=== PATIENT | male | born 1935 | race Caucasian/White ===

== ENCOUNTER 2017-01-20 17:05 | Inpatient (IN) | payer MEDICARE, MEDICAID ==
[2017-01-20 17:32] LABS: % BASOPHILS 0.6 % (0.0-2.0); % EOSINOPHILS 0.9 % (0.0-5.0); % LYMPHOCYTES 17.1 % (20.0-50.0); % MONOCYTES 6.5 % (2.0-10.0); % NEUTROPHILS 74.9 % (40.0-80.0); HEMOGLOBIN 12.8 gm/dL (12.6-17.4); MEAN CELL VOLUME 94.7 fl (80-99); MEAN CORPUSCULAR HEMOGLOBIN 33.1 pg (27.0-31.0); MEAN CORPUSCULAR HGB CONC 34.9 pg (28.0-36.0); MEAN PLATELET VOLUME 6.3 fl; NEUTROPHILE ABSOLUTE 4.6 Th/cmm (1.8-8.0); PLATELET COUNT 255 Th/cmm (150-400); RED BLOOD COUNT 3.86 Mil/cmm (3.80-5.80); RED CELL DISTRIBUTION WIDTH 13.7 % (11.5-20.0); WHITE BLOOD COUNT 6.1 Th/cmm (4.8-10.8)
[2017-01-20 17:34] LABS: HEMATOCRIT 36.6 % (39.0-49.0)
[2017-01-20 17:43] LABS: INR 0.96 (0.5-1.4)
[2017-01-20 17:51] LABS: ALB/GLOB RATIO 1.3 (1.0-1.8); ALKALINE PHOSPHATASE 147 U/L (34-104); ANION GAP 8.2 (7.0-16.0); BILIRUBIN,TOTAL 0.4 mg/dL (0.3-1.0); BUN - UREA NITROGEN 25 mg/dL (7-25); BUN/CREATININE RATIO 35.7; CALCIUM SERUM 9.2 mg/dL (8.6-10.3); CARBON DIOXIDE 30.1 mEq/L (21.0-31.0); CHLORIDE 102 mEq/L (98-107); CHOLESTEROL 175 mg/dL (<200); CREATININE - SERUM 0.7 mg/dL (0.7-1.3); GLUCOSE 117 mg/dL (70-105); POTASSIUM SERUM 4.3 mEq/L (3.5-5.1); SGOT 18 U/L (13-39); SGPT/ALT 15 U/L (7-52); SODIUM SERUM 136 mEq/L (136-145); TRIGLYCERIDES 158 mg/dL (<150)
--- NOTE | 2017-01-20 18:02 | ED Physician Chart ---
Chief Complaint/HPI - Patient Information Date Seen:: 01/20/17 Time Seen:: 17:40 Chief Complaint:: psychosis History of Present Illness:: THIS IS AN 81 MALE MALE SENT FROM A [facility] FOR [facility] EVALUATION AND TREATMENT. HE IS ALSO VERY CONFUSED AND DISORIENTED. Allergies:: Allergies Allergy/AdvReac Type Severity Reaction Status Date / Time erythromycin base Allergy Verified 05/21/16 15:10 Vitals:: Vital Signs - 8 hr 01/20/17 17:31 Temp 98.2 F HR 58 RR 19 BP 121/70 O2 Sat % 99 Historian:: EMS, Medical Records Review:: Nurse's Note Reviewed, Transfer documents Reviewed, Patient unable to respond Review of Systems - Review of Systems General/Constitutional: Other (PT UNABLE TO GIVE A REVIEW OF SYSTEMS) Past Medical History - Past Medical History Obtainable: Yes Past Medical History: CVA/TIA, Dementia Family History: None Social History: Non Smoker, No Alcohol, No Drug Use, Care Facility Surgical History: None Psychiatricy History: Dementia Medication: Reviewed Family Medical History - Family Member Mother History Unknown: Yes Ethnicity: Unknown Living Status: Unknown Hx Family Cancer: No Hx Family Coronary Artery Disease: No Hx Family Congestive Heart Failure: No Hx Family Hypertension: No Hx Family Stroke: No Hx Family Diabetes: No Hx Family Seizures: No Hx Family Dementia: No Hx Family AIDS: No Hx Family HIV: No Hx Family COPD: No Hx Family Hepatitis: No Hx Family Psychiatric Problems: No Hx Family Tuberculosis: No Physical Exam - Physical Examination General/Constitutional: Awake, Well-developed, well-nourished, Alert, No distress, GCS 15, Non-toxic appearing, Ambulatory Other Gen/Cons comments:: CONFUSED Head: Atraumatic Eyes: Lids, conjuctiva normal, PERRL, EOMI Skin: No rash, No ecchymosis, Well hydrated, No lymphadenopathy Other Skin comments:: THERE IS A HEALING SKIN INFECTION ON THE LEFT TEMPORAL AREA. ENMT: External ears, nose nl, Nasal exam nl, Lips, teeth, gums nl Neck: Nontender, Full ROM w/o pain, No JVD, No nuchal rigidity, No bruit, No mass, No stridor Respiratory: Nl effort/Exclusion, Clear to Auscultation, No Wheeze/Rhonchi/Rales Cardio Vascular: RRR, No murmur, gallop, rubs, NL S1 S2 GI: No tenderness/rebounding/guarding, No organomegaly, No hernia, Normal BS's, Nondistended, No mass/bruits, No McBurney tenderness : No CVA tenderness Extremities: No tenderness or effusion, Full ROM, normal strength in all extremities, No edema, Normal digits & nails Neuro/Psych: DTR's symmetric, Normal sensory exam, Normal motor strength, Mood normal, Normal gait, No focal deficits Other Neuro/Psych comments:: DISORIENTED AND CONFUSED BEHAVIOR Misc: normal gait, Normal back, No paraspinal tenderness Labs/Radiology/EKG Results - Lab Results Results: Laboratory Tests 01/20/17 01/20/17 01/20/17 17:23 17:23 17:23 WBC 6.1 RBC 3.86 Hgb 12.8 Hct 36.6 L D MCV 94.7 MCH 33.1 H MCHC Differential 34.9 RDW 13.7 Plt Count 255 MPV 6.3 Neutrophils % 74.9 Lymphocytes % 17.1 L Monocytes % 6.5 Eosinophils % 0.9 Basophils % 0.6 PT 10.0 INR 0.96 PTT (Actin FS) 27.0 Sodium Potassium Chloride Carbon Dioxide Anion Gap BUN Creatinine Est GFR ( Amer) Est GFR (Non-Af Amer) BUN/Creatinine Ratio Glucose Calcium Total Bilirubin AST ALT Alkaline Phosphatase Troponin I Total Protein Albumin Globulin Albumin/Globulin Ratio Triglycerides 158 H Cholesterol 175 LDL Cholesterol Direct 98 HDL Cholesterol 54 01/20/17 01/20/17 17:23 17:23 WBC RBC Hgb Hct MCV MCH MCHC Differential RDW Plt Count MPV Neutrophils % Lymphocytes % Monocytes % Eosinophils % Basophils % PT INR PTT (Actin FS) Sodium 136 Potassium 4.3 Chloride 102 Carbon Dioxide 30.1 Anion Gap 8.2 BUN 25 Creatinine 0.7 Est GFR ( Amer) TNP Est GFR (Non-Af Amer) TNP BUN/Creatinine Ratio 35.7 Glucose 117 H Calcium 9.2 Total Bilirubin 0.4 AST 18 ALT 15 Alkaline Phosphatase 147 H Troponin I 0.01 Total Protein 6.3 Albumin 3.6 L Globulin 2.7 Albumin/Globulin Ratio 1.3 Triglycerides Cholesterol LDL Cholesterol Direct HDL Cholesterol - Radiology Results Results: CHEST X-RAY = NAD - EKG Interpretations EKG Time:: 17:15 Rate & Rhythm: RATE = 65 Trimble: RIGHT AXIS Assessment - Assessment General Assessment: PSYCHOSIS ED Septic Shock - . Is Septic Shock (SBP<90, OR Lactate>4 mmol\L) present?: No - <6hrs of presentation: Vital Signs: Vital Signs - 8 hr 01/20/17 17:31 Temp 98.2 F HR 58 RR 19 BP 121/70 O2 Sat % 99 Reassessment (Disposition) - Reassessment Reassessment Condition:: Unchanged - Diagnosis Diagnosis:: PSYCHOSIS - Patient Disposition Discharge/Transfer:: Acute Care w/in this hosp Admitting Medical Physician:: Elizabeth Trejo Admitting Psych Physician:: Swati Downing Condition at Disposition:: Unchanged ED Discharge Plan - Patient Disposition Admit/Discharge/Transfer: Acute Care w/in this hosp Condition at Disposition: Unchanged
[2017-01-20] MEDS ORDERED: Maalox 30 mL Cup PO PRN (21:31)
[2017-01-20] MEDS ORDERED: Magnesium Hydroxide (MOM) 30 mL UDC PO PRN (21:31)
[2017-01-20] MEDS ORDERED: Bacitracin pkt 1 gm Pkt TP ONE (22:25)
[2017-01-20] MEDS: Bacitracin pkt 1 gm Pkt TP SCH (23:02)
[2017-01-20 23:28] VITALS: BP 143/87
[2017-01-21] MEDS: Lactulose 10 Gm/15 mL 30mL UDC PO SCH (08:59)
[2017-01-21] MEDS: Multivitamin Tab PO SCH (09:00)
[2017-01-21] MEDS: Ferrous Sulfate 325 MG TAB PO SCH (09:00)
[2017-01-21] MEDS: Bacitracin pkt 1 gm Pkt TP SCH (09:00)
[2017-01-21] MEDS: Calcium Carb/Vit D 500 mg/200 U Tab PO SCH ×2 (09:00→16:52)
--- NOTE | 2017-01-21 11:19 | Diagnostic Imaging Report ---
Portable chest x-ray HISTORY: Shortness of breath The heart size is difficult to assess with portable technique. Accentuation of the interstitial lung markings. However, no focal processes are seen. There is a healing fracture involving the proximal portion of the right humeral shaft with callus formation. Incomplete bony union. IMPRESSION: 1. Healing fracture involving the proximal right humeral shaft with incomplete bony union 2. No focal pulmonary processes
--- NOTE | 2017-01-21 12:07 | History and Physical ---
History of Present Illness - HPI Chief Complaint: The patient is an 81 year old male with PMH significant for dementia,admitted to [facility] with altered level of conciousness. HPI: The patient has history of craniotomy and dementia.He is a resident at [facility]. 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, Other (craniatomy for resection of tumor.) GI: Report: No Pertinent Hx Musculoskeletal: Report: Other (Rt shoulder fracture.) Rheumatologic: Report: No pertinent Hx Infectious Disease: Report: No Pertinent Hx Renal/: Report: No Pertinent Hx Endocrine: Report: No Pertinent Hx Dermatology: Report: Other (Skin lesions on scalp.) Family Medical History - Family Member Mother History Unknown: Yes (not significant) Ethnicity: Unknown Living Status: Unknown Hx Family Cancer: No Hx Family Coronary Artery Disease: No Hx Family Congestive Heart Failure: No Hx Family Hypertension: No Hx Family Stroke: No Hx Family Diabetes: No Hx Family Seizures: No Hx Family Dementia: No Hx Family AIDS: No Hx Family HIV: No Hx Family COPD: No Hx Family Hepatitis: No Hx Family Psychiatric Problems: No Hx Family Tuberculosis: No Social History Smoke: No Alcohol: None Drugs: None Lives: Alf Domestic Violence: Negative Health Maintenance Health Maintenance: Tetanus, Influenza Vaccine, Pneumococcal Vaccine - Medications Home Medications: Home Medication Medication Instructions Recorded Type Acetaminophen [Tylenol] 325 mg PO Q4HR PRN 05/21/16 History Gabapentin [Neurontin*] 600 mg PO HS 05/21/16 History Magnesium Hydroxide [Milk of 30 ml PO DAILY PRN 05/21/16 History Magnesia] Psyllium [Metamucil] 1 tsp PO BID 05/21/16 History Ferrous Sulfate [Iron] 325 mg PO DAILY #0 05/31/16 Rx Multivitamin with Minerals 1 tab PO DAILY #0 05/31/16 Rx [Multivitamins with Minerals] Pilocarpine 1% Ophth Soln 1 drop EACH EYE TID #0 05/31/16 Rx [Isopto-Carpine 1% Ophth Soln] Acetaminophen [Tylenol] 650 mg PO BID 01/20/17 History Bacitracin 1 gm OP BID 01/20/17 History Calcium Carb/Vitamin D3/Vit K1 1 each PO BID 01/20/17 History [Calcium + D Soft Chewable Tab] Docusate Sodium [Colace] 100 mg PO BID 01/20/17 History Lactulose 20 gm PO DAILY 01/20/17 History Normal Saline Nasal [place] 1 puff NS DAILY 01/20/17 History - Allergies Allergies/Adverse Reactions: Allergies Allergy/AdvReac Type Severity Reaction Status Date / Time erythromycin base Allergy Verified 05/21/16 15:10 Review of Systems - Review of Systems Constitutional: Denies: Fever, Chills, Weakness, Malaise Eyes: Denies: No Significant, Pain, Vision Change ENT: Denies: No Significant Respiratory: Denies: No Significant Cardiovascular: Denies: No Significant Gastrointestinal: Denies: No Significant Genitourinary: Denies: No Significant Musculoskeletal: Denies: No Significant Skin: Denies: No Significant Neurological: Report: Confusion Physical Exam - Physical Exam HEENT: Report: Ectectic Sclera Neck: Report: Within normal limits Cardiovascular Systems: Report: +s1/s2 noted, Regular, Rate and Rhythm, no murmurs noted Respiratory: Report: Breath Sounds are within normal limits, Clear to Auscultation of lung baer Abdomen: Report: Non-tender to palpation Back: Report: Inspection of back is within normal limits. Extremities: Report: No pedal edema was noted on inspection Skin: Report: Warm Neuro/Psych: Report: No new focal deficits - Lab Results All Lab Results last 24 hours: Laboratory Last Values WBC 6.1 Th/cmm (4.8-10.8) 01/20/17 17:23 RBC 3.86 Mil/cmm (3.80-5.80) 01/20/17 17:23 Hgb 12.8 gm/dL (12.6-17.4) 01/20/17 17: Hct 36.6 % (39.0-49.0) L D 01/20/17 17:23 MCV 94.7 fl (80-99) 01/20/17 17:23 MCH 33.1 pg (27.0-31.0) H 01/20/17 17: MCHC Differential 34.9 pg (28.0-36.0) 01/20/17: RDW 13.7 % (11.5-20.0) 01/20/17: Plt Count 255 Th/cmm (150-400) 01/20/17 MPV 6.3 fl 01/20/17: Neutrophils % 74.9 % (40.0-80.0) 01/20/17: Lymphocytes % 17.1 % (20.0-50.0) L 01/20/17 Monocytes % 6.5 % (2.0-10.0) 01/20/17 Eosinophils % 0.9 % (0.0-5.0) 01/20/17 Basophils % 0.6 % (0.0-2.0) 01/20/17 PT 10.0 SECONDS (9.5-11.5) 01/20/17 INR 0.96 (0.5-1.4) 01/20/17 PTT (Actin FS) 27.0 SECONDS (26.0-38.0) 01/20/17: Sodium 136 mEq/L (136-145) 01/20/17: Potassium 4.3 mEq/L (3.5-5.1) 01/20/17: Chloride 102 mEq/L (98-107) 01/20/17 Carbon Dioxide 30.1 mEq/L (21.0-31.0) 01/20/17 Anion Gap 8.2 (7.0-16.0) 01/20/17 BUN 25 mg/dL (7-25) 01/20/17 Creatinine 0.7 mg/dL (0.7-1.3) 01/20/17 Est GFR ( Amer) TNP 01/20/17 Est GFR (Non-Af Amer) TNP 01/20/17 BUN/Creatinine Ratio 35.7 01/20/17 Glucose 117 mg/dL (70-105) H 01/20/17: Calcium 9.2 mg/dL (8.6-10.3) 01/20/17 Total Bilirubin 0.4 mg/dL (0.3-1.0) 01/20/17 17: AST 18 U/L (13-39) 01/20/17 17: ALT 15 U/L (7-52) 01/20/17 17: Alkaline Phosphatase 147 U/L (34-104) H 01/20/17 17: Troponin I 0.01 ng/mL (0.01-0.05) 01/20/17: Total Protein 6.3 gm/dL (6.0-8.3) 01/20/17: Albumin 3.6 gm/dL (4.2-5.5) L 01/20/17: Globulin 2.7 gm/dL 01/20/17: Albumin/Globulin Ratio 1.3 (1.0-1.8) 01/20/17 17: Triglycerides 158 mg/dL (<150) H 01/20/17: Cholesterol 175 mg/dL (<200) 01/20/17: LDL Cholesterol Direct 98 mg/dL (75-193) 01/20/17: HDL Cholesterol 54 mg/dL (23-92) 01/20/17: TSH 4.06 uIU/ml (0.34-5.60) 01/20/17: RPR NONREACTIVE (NONREACTIVE) 01/20/17 17:23 - Assessment Assessment: Current Active Problems Problem Status Onset WEAKNESS AND LETHARGY Acute 1.Altered level of conciousness. 2.Dementia. 3.Rt shoulder fracture. 4.History of craniatomy. - Plan Plan: Admit to gerypsych.Continue current medication and diet.The case discussed with his daughter over teleph.
[2017-01-22] MEDS: Bacitracin pkt 1 gm Pkt TP SCH (08:50)
[2017-01-22] MEDS: Lactulose 10 Gm/15 mL 30mL UDC PO SCH (08:50)
[2017-01-22] MEDS: Ferrous Sulfate 325 MG TAB PO SCH (08:50)
[2017-01-22] MEDS: Multivitamin Tab PO SCH (08:50)
[2017-01-22] MEDS: Calcium Carb/Vit D 500 mg/200 U Tab PO SCH ×2 (08:50→16:42)
--- NOTE | 2017-01-22 13:51 | Internal Medicine Prog Note ---
Internal Medicine Subjective - Subjective Patient is:: awake, in bed, confused Per staff patient has:: no adverse event, eating well, unstable gait Internal Medicine Objective - Results Result Diagrams: 01/20/17 17:01/20/17 Recent Labs: Laboratory Last Values WBC 6.1 Th/cmm (4.8-10.8) 01/20/17 17: RBC 3.86 Mil/cmm (3.80-5.80) 01/20/17: Hgb 12.8 gm/dL (12.6-17.4) 01/20/17 Hct 36.6 % (39.0-49.0) L D 01/20/17 MCV 94.7 fl (80-99) 01/20/17 MCH 33.1 pg (27.0-31.0) H 01/20/17 MCHC Differential 34.9 pg (28.0-36.0) 01/20/17 RDW 13.7 % (11.5-20.0) 01/20/17 Plt Count 255 Th/cmm (150-400) 01/20/17: MPV 6.3 fl 01/20/17: Neutrophils % 74.9 % (40.0-80.0) 01/20/17: Lymphocytes % 17.1 % (20.0-50.0) L 01/20/17: Monocytes % 6.5 % (2.0-10.0) 01/20/17: Eosinophils % 0.9 % (0.0-5.0) 01/20/17: Basophils % 0.6 % (0.0-2.0) 01/20/17: PT 10.0 SECONDS (9.5-11.5) 01/20/17: INR 0.96 (0.5-1.4) 01/20/17 PTT (Actin FS) 27.0 SECONDS (26.0-38.0) 01/20/17 17: Sodium 136 mEq/L (136-145) 01/20/17: Potassium 4.3 mEq/L (3.5-5.1) 01/20/17: Chloride 102 mEq/L (98-107) 01/20/17: Carbon Dioxide 30.1 mEq/L (21.0-31.0) 01/20/17: Anion Gap 8.2 (7.0-16.0) 01/20/17 17: BUN 25 mg/dL (7-25) 01/20/17: Creatinine 0.7 mg/dL (0.7-1.3) 01/20/17: Est GFR ( Amer) TNP 01/20/17 17: Est GFR (Non-Af Amer) TNP 01/20/17 BUN/Creatinine Ratio 35.7 01/20/17: Glucose 117 mg/dL (70-105) H 01/20/17: Calcium 9.2 mg/dL (8.6-10.3) 01/20/17: Total Bilirubin 0.4 mg/dL (0.3-1.0) 01/20/17: AST 18 U/L (13-39) 01/20/17: ALT 15 U/L (7-52) 01/20/17: Alkaline Phosphatase 147 U/L (34-104) H 01/20/17: Troponin I 0.01 ng/mL (0.01-0.05) 01/20/17: Total Protein 6.3 gm/dL (6.0-8.3) 01/20/17: Albumin 3.6 gm/dL (4.2-5.5) L 01/20/17 Globulin 2.7 gm/dL 01/20/17: Albumin/Globulin Ratio 1.3 (1.0-1.8) 01/20/17: Triglycerides 158 mg/dL (<150) H 01/20/17: Cholesterol 175 mg/dL (<200) 01/20/17: LDL Cholesterol Direct 98 mg/dL (75-193) 01/20/17: HDL Cholesterol 54 mg/dL (23-92) 01/20/17: TSH 4.06 uIU/ml (0.34-5.60) 07/10/17 17:23 RPR NONREACTIVE (NONREACTIVE) 01/20/17 17:23 - Physical Exam Vitals and I&O: Vital Signs Temp 97.1 F 01/22/17 06:37 Pulse 68 01/22/17 12:39 Resp 18 01/22/17 12:39 BP 140/74 01/22/17 06:37 Pulse Ox 97 01/22/17 06:37 Intake & Output 01/21/17 01/22/17 01/22/17 18:59 06:59 18:59 Intake Total 1200 120 Balance 1200 120 Weight (lbs) 52.662 kg Intake: Oral 1200 120 Other: # Voids 4 3 # Bowel Movements 0 Active Medications: Current Medications Acetaminophen (Tylenol) 650 mg PO Q4HR PRN PRN Reason: Mild Pain / Temp above 100 Stop: 03/21/17 21:30 Al Hydrox/Mg Hydrox/Simethicone (Maalox) 30 ml PO Q4HR PRN PRN Reason: GI DISTRESS Stop: 03/21/17 21:30 Bacitracin (Baciquent) 1 pkt TP DAILY ADOLFO Stop: 02/02/17 22:10 Last Admin: 01/22/17 08:50 Dose: 1 pkt Calcium/Vitamin D (Oscal W/Vitamin D) 1 tab PO BID ADOLFO Stop: 03/22/17 08:59 Last Admin: 01/22/17 08:50 Dose: 1 tab Docusate Sodium (Colace) 100 mg PO BID ADOLFO Stop: 03/22/17 08:59 Last Admin: 01/22/17 08:50 Dose: 100 mg Ferrous Sulfate (Iron) 325 mg PO DAILY ADOLFO Stop: 03/22/17 08:59 Last Admin: 01/22/17 08:50 Dose: 325 mg Gabapentin (Neurontin) 600 mg PO HS ADOLFO Stop: 03/22/17 20:59 Last Admin: 01/21/17 21:31 Dose: 600 mg Lactulose (Cephulac) 20 gm PO DAILY ADOLFO Stop: 03/22/17 08:59 Last Admin: 01/22/17 08:50 Dose: 20 gm Lorazepam (Ativan) 0.5 mg PO Q4HR PRN; Protocol PRN Reason: Anxiety Stop: 02/19/17 21:30 Magnesium Hydroxide (Milk Of Magnesia) 30 ml PO HS PRN PRN Reason: Constipation Multivitamins/Vitamin C (Theragran) 1 tab PO DAILY ADOLFO Stop: 03/22/17 08:59 Last Admin: 01/22/17 08:50 Dose: 1 tab Pilocarpine HCl (Isopto-Carpine 1% Ophth Soln) 1 drop EACH EYE TID ADOLFO Stop: 03/22/17 08:59 Last Admin: 01/22/17 08:51 Dose: 1 drop Psyllium Hydrophilic Mucilloid (Metamucil) 1 pkt PO BID ADOLFO Stop: 03/22/17 08:59 Last Admin: 01/22/17 08:50 Dose: 1 pkt Zolpidem Tartrate (Ambien) 5 mg PO HS PRN PRN Reason: Insomnia Stop: 03/21/17 21:30 General: weak, demented HEENT: EOMI, throat clear Neck: Supple, No JVD Lungs: CTAB Cardiovascular: RRR Abdomen: soft, non-distended Extremities: clear Neurological: no change - Procedures Procedures: Procedures Procedure Code Date [place] [address] 05/21/16 IMMUNIZATION ADMIN 53487 05/21/16 INTRODUCTION OF SERUM/TOX/VACCINE INTO MUSCLE, PERC APPROACH [id number] 05/21/16 Internal Medicine Assmt/Plan - Assessment Assessment: Current Active Problems Problem Status Onset WEAKNESS AND LETHARGY Acute 1.Altered level of conciousness. 2.Dementia. 3.Rt shoulder fracture. 4.History of craniatomy. - Plan Plan: Admit to gerypsych.Continue current medication and diet.The case discussed with his daughter over teleph. Nutritional Asmnt/Malnutr-PDOC - Dietary Evaluation Malnutrition Findings (Please click <Entered> for more info): Nutritional Asmnt/Malnutrition Start: 01/21/17 14: 07 Text: Status: Active Freq: Document 01/21/17 14:07 TRISHUN (Rec: 01/21/17 14:21 [id number]) Nutritional Asmnt/Malnutrition Patient General Information Nutritional Screening High Risk Screening Diagnosis ALOC, dementia, right shoulder fracture Pertinent Medical Hx/Surgical Hx Dementia, craniatomy for resection of tumor, right shoulder fracture, skin lesions on scalp Subjective Information 81 year old male from SN[facility]. Pt was awake and very pleasant, very forgetful. Pt smiled and responded "oh yea" to most of RD's questions. Pt does not know UBW and did not show RD his teeth, pt is on pureed. Limited physical assessment, moderate to severe wasting to clavicles, some bicep muslce present. Observed sign on headboard "aspiration precaution, thickened liquids only." RD asked regarding usual appetite and hunger, pt replied "I like food" Re- visited and observed [employer] assiting with meals, no difficulties noted. Current Diet Order/ Nutrition Support Pureed, AIYANA, CCHO, honey thick Pertinent Medications Maalox, Oscal W/Vitamin D, Colace, Iron, Cephulac, MOM, Theragran, Metamucil Pertinent Labs Triglycerides 158H Nutritional Hx/Data Height 1.68 m Height (Calculated Centimeters) 167.6 Current Weight (lbs) 52.662 kg Weight (Calculated Kilograms) 52.7 Weight (Calculated Grams) 14852.1 Ruth Body Weight 142 Weight Status Underweight GI Symptoms Skin Integrity/Comment: Ishan 15. Left temporal biopsy site wound. Estimated Nutritional Goals Calories/Kcals/Kg IBW 142lb/64.5kg Kcals Calculated 1613-1935kcal (25-30kcal/kg) Protein Calculated 65g (1g/kg) Fluid: ml 1613-1935ml (1ml/kcal) Nutritional Problem 1. Problem Problem Underweight related to Etiology unknown etiology, energy imbalance aeb Signs/Symptoms: BMI 18.7, overall thin, moderate to severe wasting to clavicles Intervention/Recommendation Comments 1. Recommend removing CCHO restriction as no dx or hx DM noted in H&P. Pt is near underweight status with moderate to severe wasting to clavicles, liberalizing diet to provide more food choices to promote upward weight trend . Encourage and monitor PO intake. 2. Assist with meal. Pt is on honey thickened liquids with aspiration precausion sign. Expected Outcomes/Goals Expected Outcomes/Goals 1. PO itnake to meet at least 75% of estimated nutritional needs. 2. Weight trend towards IBW.
[2017-01-23] MEDS: Calcium Carb/Vit D 500 mg/200 U Tab PO SCH ×2 (08:58→16:30)
[2017-01-23] MEDS: Ferrous Sulfate 325 MG TAB PO SCH (08:58)
[2017-01-23] MEDS: Multivitamin Tab PO SCH (08:58)
[2017-01-23] MEDS: Bacitracin pkt 1 gm Pkt TP SCH (08:58)
[2017-01-23] MEDS: Lactulose 10 Gm/15 mL 30mL UDC PO SCH (08:58)
--- NOTE | 2017-01-23 16:34 | Internal Medicine Prog Note ---
Internal Medicine Subjective - Subjective Patient is:: awake, in bed, confused Per staff patient has:: no adverse event, eating well, unstable gait Internal Medicine Objective - Results Result Diagrams: 01/20/17 17:01/20/17 Recent Labs: Laboratory Last Values WBC 6.1 Th/cmm (4.8-10.8) 01/20/17 17: RBC 3.86 Mil/cmm (3.80-5.80) 01/20/17: Hgb 12.8 gm/dL (12.6-17.4) 01/20/17 Hct 36.6 % (39.0-49.0) L D 01/20/17 MCV 94.7 fl (80-99) 01/20/17 MCH 33.1 pg (27.0-31.0) H 01/20/17 MCHC Differential 34.9 pg (28.0-36.0) 01/20/17 RDW 13.7 % (11.5-20.0) 01/20/17 Plt Count 255 Th/cmm (150-400) 01/20/17: MPV 6.3 fl 01/20/17: Neutrophils % 74.9 % (40.0-80.0) 01/20/17: Lymphocytes % 17.1 % (20.0-50.0) L 01/20/17: Monocytes % 6.5 % (2.0-10.0) 01/20/17: Eosinophils % 0.9 % (0.0-5.0) 01/20/17: Basophils % 0.6 % (0.0-2.0) 01/20/17: PT 10.0 SECONDS (9.5-11.5) 01/20/17: INR 0.96 (0.5-1.4) 01/20/17 PTT (Actin FS) 27.0 SECONDS (26.0-38.0) 01/20/17 17: Sodium 136 mEq/L (136-145) 01/20/17: Potassium 4.3 mEq/L (3.5-5.1) 01/20/17: Chloride 102 mEq/L (98-107) 01/20/17: Carbon Dioxide 30.1 mEq/L (21.0-31.0) 01/20/17: Anion Gap 8.2 (7.0-16.0) 01/20/17 17: BUN 25 mg/dL (7-25) 01/20/17: Creatinine 0.7 mg/dL (0.7-1.3) 01/20/17: Est GFR ( Amer) TNP 01/20/17 17: Est GFR (Non-Af Amer) TNP 01/20/17 BUN/Creatinine Ratio 35.7 01/20/17: Glucose 117 mg/dL (70-105) H 01/20/17: Calcium 9.2 mg/dL (8.6-10.3) 01/20/17: Total Bilirubin 0.4 mg/dL (0.3-1.0) 01/20/17: AST 18 U/L (13-39) 01/20/17: ALT 15 U/L (7-52) 01/20/17: Alkaline Phosphatase 147 U/L (34-104) H 01/20/17: Troponin I 0.01 ng/mL (0.01-0.05) 01/20/17: Total Protein 6.3 gm/dL (6.0-8.3) 01/20/17: Albumin 3.6 gm/dL (4.2-5.5) L 01/20/17 Globulin 2.7 gm/dL 01/20/17: Albumin/Globulin Ratio 1.3 (1.0-1.8) 01/20/17: Triglycerides 158 mg/dL (<150) H 01/20/17: Cholesterol 175 mg/dL (<200) 01/20/17: LDL Cholesterol Direct 98 mg/dL (75-193) 01/20/17: HDL Cholesterol 54 mg/dL (23-92) 01/20/17: TSH 4.06 uIU/ml (0.34-5.60) 07/10/17 17:23 RPR NONREACTIVE (NONREACTIVE) 01/20/17 17:23 - Physical Exam Vitals and I&O: Vital Signs Temp 97.9 F 01/23/17 06:08 Pulse 59 01/23/17 10:35 Resp 18 01/23/17 10:35 BP 153/82 01/23/17 06:08 Pulse Ox 94 01/23/17 06:08 Intake & Output 01/22/17 01/23/17 01/23/17 18:59 06:59 18:59 Intake Total 960 100 Balance 960 100 Intake: Oral 960 100 Other: # Voids 3 1 # Bowel Movements 1 0 Active Medications: Current Medications Acetaminophen (Tylenol) 650 mg PO Q4HR PRN PRN Reason: Mild Pain / Temp above 100 Stop: 03/21/17 21:30 Al Hydrox/Mg Hydrox/Simethicone (Maalox) 30 ml PO Q4HR PRN PRN Reason: GI DISTRESS Stop: 03/21/17 21:30 Bacitracin (Baciquent) 1 pkt TP DAILY ADOLFO Stop: 02/02/17 22:10 Last Admin: 01/23/17 08:58 Dose: 1 pkt Calcium/Vitamin D (Oscal W/Vitamin D) 1 tab PO BID ADOLFO Stop: 03/22/17 08:59 Last Admin: 01/23/17 16:30 Dose: 1 tab Docusate Sodium (Colace) 100 mg PO BID ADOLFO Stop: 03/22/17 08:59 Last Admin: 01/23/17 16:30 Dose: 100 mg Escitalopram Oxalate (Lexapro) 2.5 mg PO DAILY ADOLFO PRN Reason: Protocol Stop: 03/25/17 08:59 Ferrous Sulfate (Iron) 325 mg PO DAILY ADOLFO Stop: 03/22/17 08:59 Last Admin: 01/23/17 08:58 Dose: 325 mg Gabapentin (Neurontin) 600 mg PO HS ADOLFO Stop: 03/22/17 20:59 Last Admin: 01/22/17 21:02 Dose: 600 mg Lactulose (Cephulac) 20 gm PO DAILY ADOLFO Stop: 03/22/17 08:59 Last Admin: 01/23/17 08:58 Dose: 20 gm Lorazepam (Ativan) 0.5 mg PO Q4HR PRN; Protocol PRN Reason: Anxiety Stop: 02/19/17 21:30 Magnesium Hydroxide (Milk Of Magnesia) 30 ml PO HS PRN PRN Reason: Constipation Multivitamins/Vitamin C (Theragran) 1 tab PO DAILY ADOLFO Stop: 03/22/17 08:59 Last Admin: 01/23/17 08:58 Dose: 1 tab Pilocarpine HCl (Isopto-Carpine 1% Ophth Soln) 1 drop EACH EYE TID ADOLFO Stop: 03/22/17 08:59 Last Admin: 01/23/17 14:43 Dose: 1 drop Psyllium Hydrophilic Mucilloid (Metamucil) 1 pkt PO BID ADOLFO Stop: 03/22/17 08:59 Last Admin: 01/23/17 16:31 Dose: 1 pkt Zolpidem Tartrate (Ambien) 5 mg PO HS PRN PRN Reason: Insomnia Stop: 03/21/17 21:30 General: weak, demented HEENT: EOMI, throat clear Neck: Supple, No JVD Lungs: CTAB Cardiovascular: RRR Abdomen: soft, non-distended Extremities: clear Neurological: no change - Procedures Procedures: Procedures Procedure Code Date IIV [place] [address] 05/21/16 IMMUNIZATION ADMIN 67815 05/21/16 INTRODUCTION OF SERUM/TOX/VACCINE INTO MUSCLE, PERC APPROACH [id number] 05/21/16 Internal Medicine Assmt/Plan - Assessment Assessment: Current Active Problems Problem Status Onset WEAKNESS AND LETHARGY Acute 1.Altered level of conciousness. 2.Dementia. 3.Rt shoulder fracture. 4.History of craniatomy. - Plan Plan: Admit to gerypsych.Continue current medication and diet.The case discussed with his daughter over teleph. Nutritional Asmnt/Malnutr-PDOC - Dietary Evaluation Malnutrition Findings (Please click <Entered> for more info): Nutritional Asmnt/Malnutrition Start: 01/21/17 14: 07 Text: Status: Active Freq: Document 01/21/17 14:07 SANTOSH (Rec: 01/21/17 14:21 SANTOSH [email or web address]) Nutritional Asmnt/Malnutrition Patient General Information Nutritional Screening High Risk Screening Diagnosis ALOC, dementia, right shoulder fracture Pertinent Medical Hx/Surgical Hx Dementia, craniatomy for resection of tumor, right shoulder fracture, skin lesions on scalp Subjective Information 81 year old male from SNF. Pt was awake and very pleasant, very forgetful. Pt smiled and responded "oh yea" to most of RD's questions. Pt does not know UBW and did not show RD his teeth, pt is on pureed. Limited physical assessment, moderate to severe wasting to clavicles, some bicep muslce present. 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 Current Diet Order/ Nutrition Support Pureed, AIYANA, CCHO, honey thick Pertinent Medications Maalox, Oscal W/Vitamin D, Colace, Iron, Cephulac, MOM, Theragran, Metamucil Pertinent Labs Triglycerides 158H Nutritional Hx/Data Height 1.68 m Height (Calculated Centimeters) 167.6 Current Weight (lbs) 52.662 kg Weight (Calculated Kilograms) 52.7 Weight (Calculated Grams) 96776.1 [place] Body Weight 142 Weight Status Underweight GI Symptoms Skin Integrity/Comment: Ishan 15. Left temporal biopsy site wound. Estimated Nutritional Goals Calories/Kcals/Kg IBW 142lb/64.5kg Kcals Calculated 1613-1935kcal (25-30kcal/kg) Protein Calculated 65g (1g/kg) Fluid: ml 1613-1935ml (1ml/kcal) Nutritional Problem 1. Problem Problem Underweight related to Etiology unknown etiology, energy imbalance aeb Signs/Symptoms: BMI 18.7, overall thin, moderate to severe wasting to clavicles Intervention/Recommendation Comments 1. Recommend removing CCHO restriction as no dx or hx DM noted in H&P. Pt is near underweight status with moderate to severe wasting to clavicles, liberalizing diet to provide more food choices to promote upward weight trend . Encourage and monitor PO intake. 2. Assist with meal. Pt is on honey thickened liquids with aspiration precausion sign. Expected Outcomes/Goals Expected Outcomes/Goals 1. PO itnake to meet at least 75% of estimated nutritional needs. 2. Weight trend towards IBW.
[2017-01-24] MEDS: Calcium Carb/Vit D 500 mg/200 U Tab PO SCH ×2 (09:26→17:44)
[2017-01-24] MEDS: Bacitracin pkt 1 gm Pkt TP SCH (09:26)
[2017-01-24] MEDS: Ferrous Sulfate 325 MG TAB PO SCH (09:26)
[2017-01-24] MEDS: Escitalopram Oxalate 5 mg Tab PO SCH (09:26)
[2017-01-24] MEDS: Lactulose 10 Gm/15 mL 30mL UDC PO SCH (09:27)
[2017-01-24] MEDS: Multivitamin Tab PO SCH (09:27)
--- NOTE | 2017-01-24 19:06 | Internal Medicine Prog Note ---
Internal Medicine Subjective - Subjective Service Date: 01/24/17 Patient is:: awake, in bed, confused Per staff patient has:: no adverse event, eating well, unstable gait Internal Medicine Objective - Results Result Diagrams: 01/20/1701/20/17 Recent Labs: Laboratory Last Values WBC 6.1 Th/cmm (4.8-10.8) 01/20/17: RBC 3.86 Mil/cmm (3.80-5.80) 01/20/17: Hgb 12.8 gm/dL (12.6-17.4) 01/20/17 Hct 36.6 % (39.0-49.0) L D 01/20/17 MCV 94.7 fl (80-99) 01/20/17 MCH 33.1 pg (27.0-31.0) H 01/20/17 MCHC Differential 34.9 pg (28.0-36.0) 01/20/17 RDW 13.7 % (11.5-20.0) 01/20/17 Plt Count 255 Th/cmm (150-400) 01/20/17 MPV 6.3 fl 01/20/17 Neutrophils % 74.9 % (40.0-80.0) 01/20/17 Lymphocytes % 17.1 % (20.0-50.0) L 01/20/17 Monocytes % 6.5 % (2.0-10.0) 01/20/17 Eosinophils % 0.9 % (0.0-5.0) 01/20/17 Basophils % 0.6 % (0.0-2.0) 01/20/17 PT 10.0 SECONDS (9.5-11.5) 01/20/17 INR 0.96 (0.5-1.4) 01/20/17 PTT (Actin FS) 27.0 SECONDS (26.0-38.0) 01/20/17 Sodium 136 mEq/L (136-145) 01/20/17: Potassium 4.3 mEq/L (3.5-5.1) 01/20/17 17: Chloride 102 mEq/L (98-107) 01/20/17 17: Carbon Dioxide 30.1 mEq/L (21.0-31.0) 01/20/17 17: Anion Gap 8.2 (7.0-16.0) 01/20/17 17:23 BUN 25 mg/dL (7-25) 01/20/17 17: Creatinine 0.7 mg/dL (0.7-1.3) 01/20/17 17:23 Est GFR ( Amer) TNP 01/20/17 17: Est GFR (Non-Af Amer) TNP 01/20/17: BUN/Creatinine Ratio 35.7 01/20/17 17: Glucose 117 mg/dL (70-105) H 01/20/17 17: Calcium 9.2 mg/dL (8.6-10.3) 01/20/17: Total Bilirubin 0.4 mg/dL (0.3-1.0) 01/20/17 17: AST 18 U/L (13-39) 01/20/17: ALT 15 U/L (7-52) 01/20/17 17: Alkaline Phosphatase 147 U/L (34-104) H 01/20/17: Troponin I 0.01 ng/mL (0.01-0.05) 01/20/17 17: Total Protein 6.3 gm/dL (6.0-8.3) 01/20/17: Albumin 3.6 gm/dL (4.2-5.5) L 01/20/17: Globulin 2.7 gm/dL 01/20/17: Albumin/Globulin Ratio 1.3 (1.0-1.8) 01/20/17 17:23 Triglycerides 158 mg/dL (<150) H 01/20/17 17: Cholesterol 175 mg/dL (<200) 01/20/17 17:23 LDL Cholesterol Direct 98 mg/dL (75-193) 01/20/17 17:23 HDL Cholesterol 54 mg/dL (23-92) 01/20/17 17: TSH 4.06 uIU/ml (0.34-5.60) 01/20/17 17:23 RPR NONREACTIVE (NONREACTIVE) 01/20/17 17:23 - Physical Exam Vitals and I&O: Vital Signs Temp 97.6 F 01/24/17 15:40 Pulse 69 01/24/17 15:40 Resp 18 01/24/17 15:40 BP 136/74 01/24/17 15:40 Pulse Ox 98 01/24/17 15:40 Intake & Output 01/24/17 01/24/17 01/25/17 06:59 18:59 06:59 Intake Total 800 Balance 800 Intake: Oral 800 Other: # Voids 4 # Bowel Movements 1 Active Medications: Current Medications Acetaminophen (Tylenol) 650 mg PO Q4HR PRN PRN Reason: Mild Pain / Temp above 100 Stop: 03/21/17 21:30 Al Hydrox/Mg Hydrox/Simethicone (Maalox) 30 ml PO Q4HR PRN PRN Reason: GI DISTRESS Stop: 03/21/17 21:30 Bacitracin (Baciquent) 1 pkt TP DAILY ADOLFO Stop: 02/02/17 22:10 Last Admin: 01/24/17 09:26 Dose: 1 pkt Calcium/Vitamin D (Oscal W/Vitamin D) 1 tab PO BID ADOLFO Stop: 03/22/17 08:59 Last Admin: 01/24/17 17:44 Dose: 1 tab Docusate Sodium (Colace) 100 mg PO BID ADOLFO Stop: 03/22/17 08:59 Last Admin: 01/24/17 17:44 Dose: 100 mg Escitalopram Oxalate (Lexapro) 2.5 mg PO DAILY ADOLFO PRN Reason: Protocol Stop: 03/25/17 08:59 Last Admin: 01/24/17 09:26 Dose: 2.5 mg Ferrous Sulfate (Iron) 325 mg PO DAILY ADOLFO Stop: 03/22/17 08:59 Last Admin: 01/24/17 09:26 Dose: 325 mg Gabapentin (Neurontin) 600 mg PO HS ADOLFO Stop: 03/22/17 20:59 Last Admin: 01/23/17 20:52 Dose: 600 mg Lactulose (Cephulac) 20 gm PO DAILY ADOLFO Stop: 03/22/17 08:59 Last Admin: 01/24/17 09:27 Dose: 20 gm Lorazepam (Ativan) 0.5 mg PO Q4HR PRN; Protocol PRN Reason: Anxiety Stop: 02/19/17 21:30 Magnesium Hydroxide (Milk Of Magnesia) 30 ml PO HS PRN PRN Reason: Constipation Multivitamins/Vitamin C (Theragran) 1 tab PO DAILY ADOLFO Stop: 03/22/17 08:59 Last Admin: 01/24/17 09:27 Dose: 1 tab Pilocarpine HCl (Isopto-Carpine 1% Ophth Soln) 1 drop EACH EYE TID ADOLFO Stop: 03/22/17 08:59 Last Admin: 01/24/17 13:48 Dose: Not Given Psyllium Hydrophilic Mucilloid (Metamucil) 1 pkt PO BID ADOLFO Stop: 03/22/17 08:59 Last Admin: 01/24/17 17:44 Dose: 1 pkt Zolpidem Tartrate (Ambien) 5 mg PO HS PRN PRN Reason: Insomnia Stop: 03/21/17 21:30 General: weak, demented HEENT: EOMI, throat clear Neck: Supple, No JVD Lungs: CTAB Cardiovascular: RRR Abdomen: soft, non-distended Extremities: clear Neurological: no change - Procedures Procedures: Procedures Procedure Code Date I[place] [address] 05/21/16 IMMUNIZATION ADMIN 33863 05/21/16 INTRODUCTION OF SERUM/TOX/VACCINE INTO MUSCLE, PERC APPROACH [id number] 05/21/16 Internal Medicine Assmt/Plan - Assessment Assessment: Current Active Problems Problem Status Onset WEAKNESS AND LETHARGY Acute 1.Altered level of conciousness. 2.Dementia. 3.Rt shoulder fracture. 4.History of craniatomy. - Plan Plan: Admit to gerypsych.Continue current medication and diet.++++++++++++++++++++++++ +++++++++++++++++++++++++++++++++++++++++++ Nutritional Asmnt/Malnutr-PDOC - Dietary Evaluation Malnutrition Findings (Please click <Entered> for more info): Nutritional Asmnt/Malnutrition Start: 01/21/17 14: 07 Text: Status: Active Freq: Document 01/21/17 14:07 GSUN (Rec: 01/21/17 14:21 GSUN [email or web address]) Nutritional Asmnt/Malnutrition Patient General Information Nutritional Screening High Risk Screening Diagnosis ALOC, dementia, right shoulder fracture Pertinent Medical Hx/Surgical Hx Dementia, craniatomy for resection of tumor, right shoulder fracture, skin lesions on scalp Subjective Information 81 year old male from SNF. Pt was awake and very pleasant, very forgetful. Pt smiled and responded "oh yea" to most of RD's questions. Pt does not know UBW and did not show RD his teeth, pt is on pureed. Limited physical assessment, moderate to severe wasting to clavicles, some bicep muslce present. 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 Current Diet Order/ Nutrition Support Pureed, AIYANA, CCHO, honey thick Pertinent Medications Maalox, Oscal W/Vitamin D, Colace, Iron, Cephulac, MOM, Theragran, Metamucil Pertinent Labs Triglycerides 158H Nutritional Hx/Data Height 1.68 m Height (Calculated Centimeters) 167.6 Current Weight (lbs) 52.662 kg Weight (Calculated Kilograms) 52.7 Weight (Calculated Grams) 52342.1 [place] Body Weight 142 Weight Status Underweight GI Symptoms Skin Integrity/Comment: Ishan 15. Left temporal biopsy site wound. Estimated Nutritional Goals Calories/Kcals/Kg IBW 142lb/64.5kg Kcals Calculated 1613-1935kcal (25-30kcal/kg) Protein Calculated 65g (1g/kg) Fluid: ml 1613-1935ml (1ml/kcal) Nutritional Problem 1. Problem Problem Underweight related to Etiology unknown etiology, energy imbalance aeb Signs/Symptoms: BMI 18.7, overall thin, moderate to severe wasting to clavicles Intervention/Recommendation Comments 1. Recommend removing CCHO restriction as no dx or hx DM noted in H&P. Pt is near underweight status with moderate to severe wasting to clavicles, liberalizing diet to provide more food choices to promote upward weight trend . Encourage and monitor PO intake. 2. Assist with meal. Pt is on honey thickened liquids with aspiration precausion sign. Expected Outcomes/Goals Expected Outcomes/Goals 1. PO itnake to meet at least 75% of estimated nutritional needs. 2. Weight trend towards IBW.
[2017-01-25] MEDS: Lactulose 10 Gm/15 mL 30mL UDC PO SCH (10:06)
[2017-01-25] MEDS: Escitalopram Oxalate 5 mg Tab PO SCH (10:06)
[2017-01-25] MEDS: Ferrous Sulfate 325 MG TAB PO SCH (10:08)
[2017-01-25] MEDS: Calcium Carb/Vit D 500 mg/200 U Tab PO SCH ×2 (10:08→18:28)
[2017-01-25] MEDS: Multivitamin Tab PO SCH (10:08)
[2017-01-25] MEDS: Bacitracin pkt 1 gm Pkt TP SCH (18:28)
--- NOTE | 2017-01-25 19:47 | Internal Medicine Prog Note ---
Internal Medicine Subjective - Subjective Patient seen and examined:: without staff Patient is:: awake, in bed, confused Patient Complaints of:: other (no changes) Per staff patient has:: no adverse event, eating well, unstable gait, tolerating meds Internal Medicine Objective - Results Result Diagrams: 01/20/17 17:01/20/17 Recent Labs: Laboratory Last Values WBC 6.1 Th/cmm (4.8-10.8) 01/20/17: RBC 3.86 Mil/cmm (3.80-5.80) 01/20/17 Hgb 12.8 gm/dL (12.6-17.4) 01/20/17 Hct 36.6 % (39.0-49.0) L D 01/20/17 MCV 94.7 fl (80-99) 01/20/17 MCH 33.1 pg (27.0-31.0) H 01/20/17 MCHC Differential 34.9 pg (28.0-36.0) 01/20/17: RDW 13.7 % (11.5-20.0) 01/20/17 Plt Count 255 Th/cmm (150-400) 01/20/17 MPV 6.3 fl 01/20/17 Neutrophils % 74.9 % (40.0-80.0) 01/20/17: Lymphocytes % 17.1 % (20.0-50.0) L 01/20/17 Monocytes % 6.5 % (2.0-10.0) 01/20/17: Eosinophils % 0.9 % (0.0-5.0) 01/20/17 Basophils % 0.6 % (0.0-2.0) 01/20/17 PT 10.0 SECONDS (9.5-11.5) 01/20/17: INR 0.96 (0.5-1.4) 01/20/17 PTT (Actin FS) 27.0 SECONDS (26.0-38.0) 01/20/17 Sodium 136 mEq/L (136-145) 07/10/17 17:23 Potassium 4.3 mEq/L (3.5-5.1) 01/20/17 17: Chloride 102 mEq/L (98-107) 01/20/17: Carbon Dioxide 30.1 mEq/L (21.0-31.0) 01/20/17: Anion Gap 8.2 (7.0-16.0) 01/20/17: BUN 25 mg/dL (7-25) 01/20/17: Creatinine 0.7 mg/dL (0.7-1.3) 01/20/17: Est GFR ( Amer) TNP 01/20/17 17: Est GFR (Non-Af Amer) TNP 01/20/17 BUN/Creatinine Ratio 35.7 01/20/17: Glucose 117 mg/dL (70-105) H 01/20/17: Calcium 9.2 mg/dL (8.6-10.3) 01/20/17: Total Bilirubin 0.4 mg/dL (0.3-1.0) 01/20/17: AST 18 U/L (13-39) 01/20/17: ALT 15 U/L (7-52) 01/20/17: Alkaline Phosphatase 147 U/L (34-104) H 01/20/17: Troponin I 0.01 ng/mL (0.01-0.05) 01/20/17: Total Protein 6.3 gm/dL (6.0-8.3) 01/20/17: Albumin 3.6 gm/dL (4.2-5.5) L 01/20/17: Globulin 2.7 gm/dL 01/20/17: Albumin/Globulin Ratio 1.3 (1.0-1.8) 01/20/17 17: Triglycerides 158 mg/dL (<150) H 01/20/17 17: Cholesterol 175 mg/dL (<200) 01/20/17 17: LDL Cholesterol Direct 98 mg/dL (75-193) 01/20/17: HDL Cholesterol 54 mg/dL (23-92) 01/20/17:23 TSH 4.06 uIU/ml (0.34-5.60) 01/20/17 17:23 RPR NONREACTIVE (NONREACTIVE) 01/20/17 17:23 - Physical Exam Vitals and I&O: Vital Signs Temp 97.6 F 01/24/17 15:40 Pulse 69 01/24/17 15:40 Resp 18 01/24/17 15:40 BP 136/74 01/24/17 15:40 Pulse Ox 98 01/24/17 15:40 Active Medications: Current Medications Acetaminophen (Tylenol) 650 mg PO Q4HR PRN PRN Reason: Mild Pain / Temp above 100 Stop: 03/21/17 21:30 Al Hydrox/Mg Hydrox/Simethicone (Maalox) 30 ml PO Q4HR PRN PRN Reason: GI DISTRESS Stop: 03/21/17 21:30 Bacitracin (Baciquent) 1 pkt TP DAILY ADOLFO Stop: 02/02/17 22:10 Last Admin: 01/25/17 18:28 Dose: 1 pkt Calcium/Vitamin D (Oscal W/Vitamin D) 1 tab PO BID ADOLFO Stop: 03/22/17 08:59 Last Admin: 01/25/17 18:28 Dose: Not Given Docusate Sodium (Colace) 100 mg PO BID ADOLFO Stop: 03/22/17 08:59 Last Admin: 01/25/17 18:28 Dose: 100 mg Escitalopram Oxalate (Lexapro) 2.5 mg PO DAILY ADOLFO PRN Reason: Protocol Stop: 03/25/17 08:59 Last Admin: 01/25/17 10:06 Dose: 2.5 mg Ferrous Sulfate (Iron) 325 mg PO DAILY ADOLFO Stop: 03/22/17 08:59 Last Admin: 01/25/17 10:08 Dose: 325 mg Gabapentin (Neurontin) 600 mg PO HS ADOLFO Stop: 03/22/17 20:59 Last Admin: 01/24/17 20:55 Dose: 600 mg Lactulose (Cephulac) 20 gm PO DAILY ADOLFO Stop: 03/22/17 08:59 Last Admin: 01/25/17 10:06 Dose: 20 gm Lorazepam (Ativan) 0.5 mg PO Q4HR PRN; Protocol PRN Reason: Anxiety Stop: 02/19/17 21:30 Last Admin: 01/25/17 19:26 Dose: 0.5 mg Magnesium Hydroxide (Milk Of Magnesia) 30 ml PO HS PRN PRN Reason: Constipation Multivitamins/Vitamin C (Theragran) 1 tab PO DAILY ADOLFO Stop: 03/22/17 08:59 Last Admin: 01/25/17 10:08 Dose: 1 tab Pilocarpine HCl (Isopto-Carpine 1% Ophth Soln) 1 drop EACH EYE TID ADOLFO Stop: 03/22/17 08:59 Last Admin: 01/25/17 18:28 Dose: 1 drop Psyllium Hydrophilic Mucilloid (Metamucil) 1 pkt PO BID ADOLFO Stop: 03/22/17 08:59 Last Admin: 01/25/17 18:28 Dose: Not Given Zolpidem Tartrate (Ambien) 5 mg PO HS PRN PRN Reason: Insomnia Stop: 03/21/17 21:30 General: weak, demented HEENT: EOMI, throat clear Neck: Supple, No JVD Lungs: CTAB Cardiovascular: RRR Abdomen: soft, non-distended Extremities: clear Neurological: no change - Procedures Procedures: Procedures Procedure Code Date IIV [place] [address] 05/21/16 IMMUNIZATION ADMIN 52901 05/21/16 INTRODUCTION OF SERUM/TOX/VACCINE INTO MUSCLE, PERC APPROACH [id number] 05/21/16 Internal Medicine Assmt/Plan - Assessment Assessment: Current Active Problems Problem Status Onset WEAKNESS AND LETHARGY Acute 1.Altered level of conciousness. 2.Dementia. 3.Rt shoulder fracture. 4.History of craniatomy. - Plan Plan: Admit to gerypsych.Continue current medication and diet. Nutritional Asmnt/Malnutr-PDOC - Dietary Evaluation Malnutrition Findings (Please click <Entered> for more info): Nutritional Asmnt/Malnutrition Start: 01/21/17 14: 07 Text: Status: Active Freq: Document 01/21/17 14:07 SANTOSH (Rec: 01/21/17 14:21 SANTOSH [email or web address]) Nutritional Asmnt/Malnutrition Patient General Information Nutritional Screening High Risk Screening Diagnosis ALOC, dementia, right shoulder fracture Pertinent Medical Hx/Surgical Hx Dementia, craniatomy for resection of tumor, right shoulder fracture, skin lesions on scalp Subjective Information 81 year old male from SNF. Pt was awake and very pleasant, very forgetful. Pt smiled and responded "oh yea" to most of RD's questions. Pt does not know UBW and did not show RD his teeth, pt is on pureed. Limited physical assessment, moderate to severe wasting to clavicles, some bicep muslce present. 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 Current Diet Order/ Nutrition Support Pureed, AIYANA, CCHO, honey thick Pertinent Medications Maalox, Oscal W/Vitamin D, Colace, Iron, Cephulac, MOM, Theragran, Metamucil Pertinent Labs Triglycerides 158H Nutritional Hx/Data Height 1.68 m Height (Calculated Centimeters) 167.6 Current Weight (lbs) 52.662 kg Weight (Calculated Kilograms) 52.7 Weight (Calculated Grams) 52254.1 [place] Body Weight 142 Weight Status Underweight GI Symptoms Skin Integrity/Comment: Ishan 15. Left temporal biopsy site wound. Estimated Nutritional Goals Calories/Kcals/Kg IBW 142lb/64.5kg Kcals Calculated 1613-1935kcal (25-30kcal/kg) Protein Calculated 65g (1g/kg) Fluid: ml 1613-1935ml (1ml/kcal) Nutritional Problem 1. Problem Problem Underweight related to Etiology unknown etiology, energy imbalance aeb Signs/Symptoms: BMI 18.7, overall thin, moderate to severe wasting to clavicles Intervention/Recommendation Comments 1. Recommend removing CCHO restriction as no dx or hx DM noted in H&P. Pt is near underweight status with moderate to severe wasting to clavicles, liberalizing diet to provide more food choices to promote upward weight trend . Encourage and monitor PO intake. 2. Assist with meal. Pt is on honey thickened liquids with aspiration precausion sign. Expected Outcomes/Goals Expected Outcomes/Goals 1. PO itnake to meet at least 75% of estimated nutritional needs. 2. Weight trend towards IBW.
[2017-01-26] MEDS: Lactulose 10 Gm/15 mL 30mL UDC PO SCH (10:18)
[2017-01-26] MEDS: Ferrous Sulfate 325 MG TAB PO SCH (10:26)
[2017-01-26] MEDS: Escitalopram Oxalate 5 mg Tab PO SCH (10:26)
[2017-01-26] MEDS: Calcium Carb/Vit D 500 mg/200 U Tab PO SCH ×2 (10:26→17:40)
[2017-01-26] MEDS: Multivitamin Tab PO SCH (10:46)
--- NOTE | 2017-01-26 15:39 | Internal Medicine Prog Note ---
Internal Medicine Subjective - Subjective Service Date: 01/26/17 Patient seen and examined:: without staff Patient is:: awake, in bed, confused Patient Complaints of:: other (no changes) Per staff patient has:: no adverse event, eating well, unstable gait, tolerating meds Internal Medicine Objective - Results Result Diagrams: 01/20/17 17:01/20/17 Recent Labs: Laboratory Last Values WBC 6.1 Th/cmm (4.8-10.8) 01/20/17: RBC 3.86 Mil/cmm (3.80-5.80) 01/20/17: Hgb 12.8 gm/dL (12.6-17.4) 01/20/17 Hct 36.6 % (39.0-49.0) L D 01/20/17 MCV 94.7 fl (80-99) 01/20/17: MCH 33.1 pg (27.0-31.0) H 01/20/17 MCHC Differential 34.9 pg (28.0-36.0) 01/20/17 RDW 13.7 % (11.5-20.0) 01/20/17 Plt Count 255 Th/cmm (150-400) 01/20/17 MPV 6.3 fl 01/20/17: Neutrophils % 74.9 % (40.0-80.0) 01/20/17: Lymphocytes % 17.1 % (20.0-50.0) L 01/20/17 Monocytes % 6.5 % (2.0-10.0) 01/20/17: Eosinophils % 0.9 % (0.0-5.0) 01/20/17 Basophils % 0.6 % (0.0-2.0) 01/20/17 PT 10.0 SECONDS (9.5-11.5) 01/20/17 INR 0.96 (0.5-1.4) 01/20/17 PTT (Actin FS) 27.0 SECONDS (26.0-38.0) 01/20/17 Sodium 136 mEq/L (136-145) 01/20/17 17:23 Potassium 4.3 mEq/L (3.5-5.1) 01/20/17 17:23 Chloride 102 mEq/L (98-107) 01/20/17 17: Carbon Dioxide 30.1 mEq/L (21.0-31.0) 01/20/17 17:23 Anion Gap 8.2 (7.0-16.0) 01/20/17 17: BUN 25 mg/dL (7-25) 01/20/17 17: Creatinine 0.7 mg/dL (0.7-1.3) 01/20/17 17:23 Est GFR ( Amer) TNP 01/20/17 17: Est GFR (Non-Af Amer) TNP 01/20/17 17: BUN/Creatinine Ratio 35.7 01/20/17 17: Glucose 117 mg/dL (70-105) H 01/20/17 17: Calcium 9.2 mg/dL (8.6-10.3) 01/20/17: Total Bilirubin 0.4 mg/dL (0.3-1.0) 01/20/17 17:23 AST 18 U/L (13-39) 01/20/17 17: ALT 15 U/L (7-52) 01/20/17 17: Alkaline Phosphatase 147 U/L (34-104) H 01/20/17 17:23 Troponin I 0.01 ng/mL (0.01-0.05) 01/20/17 17: Total Protein 6.3 gm/dL (6.0-8.3) 01/20/17 17: Albumin 3.6 gm/dL (4.2-5.5) L 01/20/17 17:23 Globulin 2.7 gm/dL 01/20/17 17:23 Albumin/Globulin Ratio 1.3 (1.0-1.8) 01/20/17 17:23 Triglycerides 158 mg/dL (<150) H 01/20/17 17:23 Cholesterol 175 mg/dL (<200) 01/20/17 17:23 LDL Cholesterol Direct 98 mg/dL (75-193) 01/20/17 17:23 HDL Cholesterol 54 mg/dL (23-92) 01/20/17 17:23 TSH 4.06 uIU/ml (0.34-5.60) 01/20/17 17:23 RPR NONREACTIVE (NONREACTIVE) 01/20/17 17:23 - Physical Exam Vitals and I&O: Vital Signs Temp 97.4 F 01/25/17 21:33 Pulse 73 01/25/17 21:33 Resp 18 01/25/17 21:33 BP 130/76 01/25/17 21:33 Pulse Ox 97 01/25/17 21:33 Active Medications: Current Medications Acetaminophen (Tylenol) 650 mg PO Q4HR PRN PRN Reason: Mild Pain / Temp above 100 Stop: 03/21/17 21:30 Al Hydrox/Mg Hydrox/Simethicone (Maalox) 30 ml PO Q4HR PRN PRN Reason: GI DISTRESS Stop: 03/21/17 21:30 Bacitracin (Baciquent) 1 pkt TP DAILY ADLOFO Stop: 02/02/17 22:10 Last Admin: 01/25/17 18:28 Dose: 1 pkt Calcium/Vitamin D (Oscal W/Vitamin D) 1 tab PO BID ADOLFO Stop: 03/22/17 08:59 Last Admin: 01/26/17 10:26 Dose: 1 tab Docusate Sodium (Colace) 100 mg PO BID ADOLFO Stop: 03/22/17 08:59 Last Admin: 01/26/17 10:43 Dose: 100 mg Escitalopram Oxalate (Lexapro) 2.5 mg PO DAILY ADOLFO PRN Reason: Protocol Stop: 03/25/17 08:59 Last Admin: 01/26/17 10:26 Dose: 2.5 mg Ferrous Sulfate (Iron) 325 mg PO DAILY ADOLFO Stop: 03/22/17 08:59 Last Admin: 01/26/17 10:26 Dose: 325 mg Gabapentin (Neurontin) 600 mg PO HS ADOLFO Stop: 03/22/17 20:59 Last Admin: 01/25/17 20:54 Dose: 600 mg Lactulose (Cephulac) 20 gm PO DAILY ADOLFO Stop: 03/22/17 08:59 Last Admin: 01/26/17 10:18 Dose: Not Given Lorazepam (Ativan) 0.5 mg PO Q4HR PRN; Protocol PRN Reason: Anxiety Stop: 02/19/17 21:30 Last Admin: 01/25/17 19:26 Dose: 0.5 mg Magnesium Hydroxide (Milk Of Magnesia) 30 ml PO HS PRN PRN Reason: Constipation Multivitamins/Vitamin C (Theragran) 1 tab PO DAILY ADOLFO Stop: 03/22/17 08:59 Last Admin: 01/26/17 10:46 Dose: 1 tab Pilocarpine HCl (Isopto-Carpine 1% Ophth Soln) 1 drop EACH EYE TID ADOLFO Stop: 03/22/17 08:59 Last Admin: 01/26/17 10:46 Dose: 1 drop Psyllium Hydrophilic Mucilloid (Metamucil) 1 pkt PO BID ADOLFO Stop: 03/22/17 08:59 Last Admin: 01/26/17 10:47 Dose: Not Given Zolpidem Tartrate (Ambien) 5 mg PO HS PRN PRN Reason: Insomnia Stop: 03/21/17 21:30 General: weak, demented HEENT: EOMI, throat clear Neck: Supple, No JVD Lungs: CTAB Cardiovascular: RRR Abdomen: soft, non-distended Extremities: clear Neurological: no change - Procedures Procedures: Procedures Procedure Code Date IIV ADJUVANT VACCINE IM 29089 05/21/16 IMMUNIZATION ADMIN 19089 05/21/16 INTRODUCTION OF SERUM/TOX/VACCINE INTO MUSCLE, PERC APPROACH [id number] 05/21/16 Internal Medicine Assmt/Plan - Assessment Assessment: Current Active Problems Problem Status Onset WEAKNESS AND LETHARGY Acute 1.Altered level of conciousness. 2.Dementia. 3.Rt shoulder fracture. 4.History of craniatomy. - Plan Plan: Admit to gerypsych.Continue current medication and diet. Nutritional Asmnt/Malnutr-PDOC - Dietary Evaluation Malnutrition Findings (Please click <Entered> for more info): Nutritional Asmnt/Malnutrition Start: 01/21/17 14: 07 Text: Status: Active Freq: Document 01/21/17 14:07 SANTOSH (Rec: 01/21/17 14:21 SANTOSH [email or web address]) Nutritional Asmnt/Malnutrition Patient General Information Nutritional Screening High Risk Screening Diagnosis ALOC, dementia, right shoulder fracture Pertinent Medical Hx/Surgical Hx Dementia, craniatomy for resection of tumor, right shoulder fracture, skin lesions on scalp Subjective Information 81 year old male from SNF. Pt was awake and very pleasant, very forgetful. Pt smiled and responded "oh yea" to most of RD's questions. Pt does not know UBW and did not show RD his teeth, pt is on pureed. Limited physical assessment, moderate to severe wasting to clavicles, some bicep muslce present. 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 Current Diet Order/ Nutrition Support Pureed, AIYANA, CCHO, honey thick Pertinent Medications Maalox, Oscal W/Vitamin D, Colace, Iron, Cephulac, MOM, Theragran, Metamucil Pertinent Labs Triglycerides 158H Nutritional Hx/Data Height 1.68 m Height (Calculated Centimeters) 167.6 Current Weight (lbs) 52.662 kg Weight (Calculated Kilograms) 52.7 Weight (Calculated Grams) 14457.1 [place] Body Weight 142 Weight Status Underweight GI Symptoms Skin Integrity/Comment: Ishan 15. Left temporal biopsy site wound. Estimated Nutritional Goals Calories/Kcals/Kg IBW 142lb/64.5kg Kcals Calculated 1613-1935kcal (25-30kcal/kg) Protein Calculated 65g (1g/kg) Fluid: ml 1613-1935ml (1ml/kcal) Nutritional Problem 1. Problem Problem Underweight related to Etiology unknown etiology, energy imbalance aeb Signs/Symptoms: BMI 18.7, overall thin, moderate to severe wasting to clavicles Intervention/Recommendation Comments 1. Recommend removing CCHO restriction as no dx or hx DM noted in H&P. Pt is near underweight status with moderate to severe wasting to clavicles, liberalizing diet to provide more food choices to promote upward weight trend . Encourage and monitor PO intake. 2. Assist with meal. Pt is on honey thickened liquids with aspiration precausion sign. Expected Outcomes/Goals Expected Outcomes/Goals 1. PO itnake to meet at least 75% of estimated nutritional needs. 2. Weight trend towards IBW.
[2017-01-26] MEDS: Bacitracin pkt 1 gm Pkt TP SCH (15:42)
[2017-01-27] MEDS ORDERED: Albuterol Nebulizer 2.5mg/3mL HHN PRN (09:08)
[2017-01-27] MEDS: Escitalopram Oxalate 5 mg Tab PO SCH (10:11)
[2017-01-27] MEDS: Ferrous Sulfate 325 MG TAB PO SCH (10:11)
[2017-01-27] MEDS: Calcium Carb/Vit D 500 mg/200 U Tab PO SCH (10:11)
[2017-01-27] MEDS: Lactulose 10 Gm/15 mL 30mL UDC PO SCH (10:12)
[2017-01-27] MEDS: Multivitamin Tab PO SCH (10:12)
--- NOTE | 2017-01-27 10:21 | Diagnostic Imaging Report ---
Portable chest x-ray HISTORY: Shortness of breath Compared with the prior exam of January 20, 2017, there has developed infiltrate in left lower lobe. Findings consistent with pneumonia. Atherosclerotic calcination seen in the aorta. IMPRESSION: 1. New infiltrate within the left lower lobe since January 20, 2017. Findings consistent with pneumonia 2. Healing fracture involving the right proximal humeral shaft and neck region with callus formation.
[2017-01-27] MEDS: Bacitracin pkt 1 gm Pkt TP SCH (11:28)
== END 2017-01-27 14:56 | DRG 884 ==
LOC: ER 17:05 → GERO 18:55
PROVIDERS: ADMIT Psychiatry & Neurology Psychiatry; ATTEND Psychiatry & Neurology Psychiatry
DX: F03.90 Unspecified dementia, unspecified severity, without behavioral disturbance, psychotic disturbance, mood disturbance, and anxiety (principal); F29 Unspecified psychosis not due to a substance or known physiological condition; L98.8 Other specified disorders of the skin and subcutaneous tissue; R26.9 Unspecified abnormalities of gait and mobility; Z86.73 Personal history of transient ischemic attack (TIA), and cerebral infarction without residual deficits; Z87.81 Personal history of (healed) traumatic fracture; Z88.1 Allergy status to other antibiotic agents
CPT/HCPCS: 36415-UA; 71010-TC; 80053-TC; 80061-TC; 84443-TC; 84484-TC; 85025-TC; 85610-TC; 85730-TC; 86592-TC; 93005; 94760; Z7610

== ENCOUNTER 2017-01-27 14:49 | Inpatient (IN) | payer MEDICARE, MEDICAID ==
--- NOTE | 2017-01-27 15:15 | History and Physical ---
History of Present Illness - HPI Chief Complaint: Coughing for one day duration. HPI: The patient is an 81 year old male with PMH significant for dementia,a [facility].The patient starts coughing since this morning ,cxr is significant for LLL Pneumonia,no fever or sob or desaturation.The patient was transferred to telemetry for more evaluation and treatment. Vital Signs: temp.98 HR 65 BP 130/66 Past Medical History Cardiovascular: Report: No Pertinent Hx Pulmonary: Report: No Pertinent Hx PSYCHIATRIC RN: Report: Dementia GI: Report: No Pertinent Hx Psych: Report: Depression, Other Musculoskeletal: Report: Muscle Atrophy, Weakness Rheumatologic: Report: No pertinent Hx Infectious Disease: Report: No Pertinent Hx Renal/: Report: No Pertinent Hx Endocrine: Report: No Pertinent Hx Dermatology: Report: No Pertinent Hx - Past Surgical History Past Surgical History: Other (craniatomy) Family Medical History - Family Member Mother Ethnicity: Unknown Living Status: Unknown Hx Family Cancer: No Hx Family Coronary Artery Disease: No Hx Family Congestive Heart Failure: No Hx Family Hypertension: No Hx Family Stroke: No Hx Family Diabetes: No Hx Family Seizures: No Hx Family Dementia: No Hx Family AIDS: No Hx Family HIV: No Hx Family COPD: No Hx Family Hepatitis: No Hx Family Psychiatric Problems: No Hx Family Tuberculosis: No Social History Smoke: No Alcohol: None Drugs: None Lives: Retirement Domestic Violence: Negative Health Maintenance Health Maintenance: Tetanus, Influenza Vaccine, Pneumococcal Vaccine - Medications Home Medications: Home Medication Medication Instructions Recorded Type Acetaminophen [Tylenol] 325 mg PO Q4HR PRN 05/21/16 History Gabapentin [Neurontin*] 600 mg PO HS 05/21/16 History Magnesium Hydroxide [Milk of 30 ml PO DAILY PRN 05/21/16 History Magnesia] Psyllium [Metamucil] 1 tsp PO BID 05/21/16 History Ferrous Sulfate [Iron] 325 mg PO DAILY #0 05/31/16 Rx Multivitamin with Minerals 1 tab PO DAILY #0 05/31/16 Rx [Multivitamins with Minerals] Pilocarpine 1% Ophth Soln 1 drop EACH EYE TID #0 05/31/16 Rx [Isopto-Carpine 1% Ophth Soln] Acetaminophen [Tylenol] 650 mg PO BID 01/20/17 History Bacitracin 1 gm OP BID 01/20/17 History Calcium Carb/Vitamin D3/Vit K1 1 each PO BID 01/20/17 History [Calcium + D Soft Chewable Tab] Docusate Sodium [Colace] 100 mg PO BID 01/20/17 History Lactulose 20 gm PO DAILY 01/20/17 History Normal Saline Nasal [place] 1 puff NS DAILY 01/20/17 History Acetaminophen [Tylenol] 650 mg PO Q4HR PRN tab 01/27/17 Rx Al Hyd/Mg Hyd/Simethicone [Maalox] 30 ml PO Q4HR PRN udc 01/27/17 Rx Albuterol Nebulizer 2.5mg/3mL 2.5 mg HHN Q8HR PRN each 01/27/17 Rx [Albuterol Neb UD*] Bacitracin pkt [Baciquent] 1 pkt TP DAILY packet 01/27/17 Rx Calcium Carb/Vit D 500mg/200U 1 tab PO BID tab 01/27/17 Rx [Oscal w/Vitamin D] Docusate Sodium [Colace] 100 mg PO BID cap 01/27/17 Rx Escitalopram Oxalate [Lexapro] 2.5 mg PO DAILY tab 01/27/17 Rx Ferrous Sulfate [Iron] 325 mg PO DAILY tab 01/27/17 Rx Gabapentin [Neurontin*] 600 mg PO HS cap 01/27/17 Rx Lactulose [Cephulac] 20 gm PO DAILY udc 01/27/17 Rx Magnesium Hydroxide [Milk of 30 ml PO HS PRN udc 01/27/17 Rx Magnesia] Multivitamin [Theragran] 1 tab PO DAILY #0 tab 01/27/17 Rx Pilocarpine 1% Ophth Soln 1 drop EACH EYE TID 01/27/17 Rx [Isopto-Carpine 1% Ophth Soln] Psyllium [Metamucil] 1 pkt PO BID pkt 01/27/17 Rx Zolpidem Tartrate [Ambien] 5 mg PO HS PRN tab 01/27/17 Rx - Allergies Allergies/Adverse Reactions: Allergies Allergy/AdvReac Type Severity Reaction Status Date / Time erythromycin base Allergy Verified 05/21/16 15:10 Review of Systems - Review of Systems Constitutional: Report: Weakness Eyes: Report: Eyelid Inflammation ENT: Report: No Significant Respiratory: Report: Cough Cardiovascular: Report: No Significant Gastrointestinal: Report: No Significant Genitourinary: Report: No Significant Musculoskeletal: Report: No Significant Skin: Report: No Significant Neurological: Report: Weakness Physical Exam - Physical Exam HEENT: Report: Ears Nose Throat within normal limits Neck: Report: Within normal limits Cardiovascular Systems: Report: Regular, Rate and Rhythm, no murmurs noted Respiratory: Report: Rhonchi Abdomen: Report: Non-tender to palpation Back: Report: Inspection of back is within normal limits. Extremities: Report: No pedal edema was noted on inspection Skin: Report: Color of skin is within normal limits Neuro/Psych: Report: Disoriented to name time or place - Lab Results All Lab Results last 24 hours: pending - Assessment Assessment: 1.LLL PNEUMONIA. 2.DEMENTIA. 3.POOR INTAKE. 4.MALE NUTRITION. - Plan Plan: 1.ADMIT TO TELEMETRY. 2.D5 HALF NS AT 75 CC/H. 3.PUREED DIET WITH ONE TO ONE ASSIST. 4.2 L NC OXYGEN. 5.LEVAQUIN 500 MG IV ONCE A DAY. 6.BREATHING TREATMENT WITH XOPENEX 1.25MG EVERY 6H. 7.CONSULT . 8.CBC AND CMP STAT. 9.RESUME HOME MEDICATION. 10.SWALLOW EVALUATION.
[2017-01-27] MEDS: D5-0.45NS 1,000 ML IV SCH (15:30)
[2017-01-27] MEDS ORDERED: Magnesium Hydroxide (MOM) 30 mL UDC PO PRN (15:41)
[2017-01-27] MEDS ORDERED: Maalox 30 mL Cup PO PRN (15:41)
[2017-01-27] MEDS ORDERED: Albuterol Nebulizer 2.5mg/3mL HHN PRN (15:41)
[2017-01-27 16:00] LABS: HEMATOCRIT 37.7 % (39.0-49.0); HEMOGLOBIN 12.8 gm/dL (12.6-17.4); MEAN CELL VOLUME 96.8 fl (80-99); MEAN CORPUSCULAR HEMOGLOBIN 32.9 pg (27.0-31.0); MEAN PLATELET VOLUME 7.3 fl; PLATELET COUNT 216 Th/cmm (150-400); RED CELL DISTRIBUTION WIDTH 13.4 % (11.5-20.0)
[2017-01-27] MEDS ORDERED: Levofloxacin 500mg/100mL 500 MG/100 ML BAG IV SCH (16:00)
[2017-01-27 16:08] LABS: WHITE BLOOD COUNT 10.7 Th/cmm (4.8-10.8)
[2017-01-27 16:13] LABS: ANION GAP 4.5 (7.0-16.0); BUN - UREA NITROGEN 32 mg/dL (7-25); CALCIUM SERUM 9.4 mg/dL (8.6-10.3); CARBON DIOXIDE 29.7 mEq/L (21.0-31.0); CHLORIDE 101 mEq/L (98-107); CREATININE - SERUM 0.8 mg/dL (0.7-1.3); GLUCOSE 137 mg/dL (70-105); POTASSIUM SERUM 4.2 mEq/L (3.5-5.1); SODIUM SERUM 131 mEq/L (136-145)
[2017-01-27 16:29] LABS: BAND NEUTROPHILE 3 % (0-10); NEUTROPHILS 82 % (40-80); PLATELET ESTIMATE ADEQUATE (NORMAL); TOTAL CELLS COUNTED 100
[2017-01-27] MEDS: Calcium Carb/Vit D 500 mg/200 U Tab PO SCH (16:47)
[2017-01-27] MEDS ORDERED: BACITRACIN OP SCH (17:00)
[2017-01-28 07:20] VITALS: BP 111/64
[2017-01-28] MEDS: Saline 0.65% Nasal Spray NS SCH (08:49)
[2017-01-28] MEDS: Bacitracin pkt 1 gm Pkt TP SCH (08:53)
[2017-01-28] MEDS: Calcium Carb/Vit D 500 mg/200 U Tab PO SCH ×2 (08:54→16:51)
[2017-01-28] MEDS: Escitalopram Oxalate 5 mg Tab PO SCH (08:54)
[2017-01-28] MEDS: Ferrous Sulfate 325 MG TAB PO SCH (08:54)
[2017-01-28] MEDS: D5-0.45NS 1,000 ML IV SCH ×2 (08:54→23:30)
[2017-01-28] MEDS: Multivitamin Tab PO SCH (08:55)
[2017-01-28] MEDS: Lactulose 10 Gm/15 mL 30mL UDC PO SCH (08:55)
--- NOTE | 2017-01-28 21:01 | Internal Medicine Prog Note ---
Internal Medicine Subjective - Subjective Service Date: 01/28/17 Patient seen and examined:: with staff Patient is:: arousable Patient Complaints of:: cough Per staff patient has:: no adverse event, eating well Internal Medicine Objective - Results Result Diagrams: 01/27/17 15:52 01/27/17 15:52 Recent Labs: Laboratory Last Values WBC 10.7 Th/cmm (4.8-10.8) D 01/27/17 15:52 RBC 3.90 Mil/cmm (3.80-5.80) 01/27/17 15:52 Hgb 12.8 gm/dL (12.6-17.4) 01/27/17 15:52 Hct 37.7 % (39.0-49.0) L 01/27/17 15:52 MCV 96.8 fl (80-99) 01/27/17 15:52 MCH 32.9 pg (27.0-31.0) H 01/27/17 15:52 MCHC Differential 34.0 pg (28.0-36.0) 01/27/17 15:52 RDW 13.4 % (11.5-20.0) 01/27/17 15:52 Plt Count 216 Th/cmm (150-400) 01/27/17 15:52 MPV 7.3 fl 01/27/17 15:52 Band Neutrophils % 3 % (0-10) 01/27/17 15:52 Neutrophils (Manual) 82 % (40-80) H 01/27/17 15:52 Lymphocytes 11 % (20-50) L 01/27/17 15:52 Monocytes 4 % (2-10) 01/27/17 15:52 Platelet Estimate ADEQUATE (NORMAL) 01/27/17 15:52 Sodium 131 mEq/L (136-145) L 01/27/17 15:52 Potassium 4.2 mEq/L (3.5-5.1) 01/27/17 15:52 Chloride 101 mEq/L (98-107) 01/27/17 15:52 Carbon Dioxide 29.7 mEq/L (21.0-31.0) 01/27/17 15:52 Anion Gap 4.5 (7.0-16.0) L 01/27/17 15:52 BUN 32 mg/dL (7-25) H 01/27/17 15:52 Creatinine 0.8 mg/dL (0.7-1.3) 01/27/17 15:52 Est GFR ( Amer) TNP 01/27/17 15:52 Est GFR (Non-Af Amer) TNP 01/27/17 15:52 BUN/Creatinine Ratio 40.0 01/27/17 15:52 Glucose 137 mg/dL (70-105) H 01/27/17 15:52 Calcium 9.4 mg/dL (8.6-10.3) 01/27/17 15:52 - Physical Exam Vitals and I&O: Vital Signs Temp 96.4 F 01/28/17 20:00 Pulse 72 01/28/17 20:00 Resp 18 01/28/17 20:00 BP 123/63 01/28/17 20:00 Pulse Ox 100 01/28/17 20:00 Intake & Output 01/28/17 01/28/17 01/29/17 06:59 18:59 06:59 Intake Total 1050 100 Output Total 2 Balance 1048 100 Weight (lbs) 50.802 kg 49.487 kg Intake: Intake, IV Amount 1050 100 D5-0.45NS 1,000 ml @ 75 1000 mls/hr IV .[id number] [facility] Rx #:[id number] Piperacillin Sodium/ 50 100 Tazobact 4.5 gm In Sodium Chloride 0.9% 50 ml @ 50 mls/hr IV Q6HR [facility] Rx#: [id number] Output: Urine 2 Other: # Bowel Movements 1 Stool Characteristics Formed Formed Active Medications: Current Medications Acetaminophen (Tylenol) 325 mg PO Q4HR PRN PRN Reason: Pain (Mild) Stop: 03/28/17 15:40 Al Hydrox/Mg Hydrox/Simethicone (Maalox) 30 ml PO Q4HR PRN PRN Reason: GI DISTRESS Stop: 03/28/17 15:40 Albuterol Sulfate (Albuterol 2.5mg/3ml Neb Ud) 2.5 mg HHN Q8HR PRN PRN Reason: Congestion Stop: 03/28/17 15:40 Bacitracin (Baciquent) 1 pkt TP DAILY ADOLFO Stop: 03/29/17 08:59 Last Admin: 01/28/17 08:53 Dose: 1 pkt Calcium/Vitamin D (Oscal W/Vitamin D) 1 tab PO BID ADOLFO Stop: 03/28/17 16:59 Last Admin: 01/28/17 16:51 Dose: Not Given Docusate Sodium (Colace) 100 mg PO BID ADOLFO Stop: 03/28/17 16:59 Last Admin: 01/28/17 16:51 Dose: Not Given Escitalopram Oxalate (Lexapro) 2.5 mg PO DAILY ADOLFO PRN Reason: Protocol Stop: 03/29/17 08:59 Last Admin: 01/28/17 08:54 Dose: Not Given Ferrous Sulfate (Iron) 325 mg PO DAILY ADOLFO Stop: 03/29/17 08:59 Last Admin: 01/28/17 08:54 Dose: Not Given Gabapentin (Neurontin) 600 mg PO HS [facility] Stop: 03/28/17 20:59 Heparin Sodium (Porcine) (Heparin) 5,000 units SUBQ Q12HR ADOLFO Stop: 03/29/17 20:59 Dextrose/Sodium Chloride (D5-0.45ns) 1,000 mls @ 75 mls/hr IV .[id number] [facility] Stop: 03/28/17 15:33 Last Admin: 01/28/17 08:54 Dose: 75 mls/hr Piperacillin Sod/Tazobactam (Sod 4.5 gm/ Sodium Chloride) 50 mls @ 50 mls/hr IV Q6HR [facility] Stop: 03/28/17 17:59 Last Admin: 01/28/17 17:14 Dose: 100 mls/hr Lactulose (Cephulac) 20 gm PO DAILY ADOLFO Stop: 03/29/17 08:59 Last Admin: 01/28/17 08:55 Dose: Not Given Magnesium Hydroxide (Milk Of Magnesia) 30 ml PO DAILY PRN PRN Reason: Constipation Stop: 03/28/17 15:40 Miscellaneous (Zosyn Iv Per Pharmacy) 1 ea MC PRN PRN PRN Reason: PROTOCOL Stop: 03/28/17 15:50 Multivitamins/Vitamin C (Theragran) 1 tab PO DAILY ADOLFO Stop: 03/29/17 08:59 Last Admin: 01/28/17 08:55 Dose: Not Given Pilocarpine HCl (Isopto-Carpine 1% Oph Soln) 1 drop EACH EYE TID ADOLFO Stop: 03/28/17 20:59 Last Admin: 01/28/17 14:00 Dose: 1 drop Psyllium Hydrophilic Mucilloid (Metamucil) 1 pkt PO BID ADOLFO Stop: 03/28/17 16:59 Last Admin: 01/28/17 16:51 Dose: Not Given Sodium Chloride ([place] Nasal [place]) 1 spr NS DAILY ADOLFO Stop: 03/29/17 08:59 Last Admin: 01/28/17 08:49 Dose: 1 spr Zolpidem Tartrate (Ambien) 5 mg PO HS PRN PRN Reason: Insomnia Stop: 03/28/17 15:40 - Procedures Procedures: Procedures Procedure Code Date IIV [place] VACC[place] 05274 05/21/16 IMMUNIZATION ADMIN 43869 05/21/16 INTRODUCTION OF SERUM/TOX/VACCINE INTO MUSCLE, PERC APPROACH [id number] 05/21/16 Internal Medicine Assmt/Plan - Assessment Assessment: 1.LLL PNEUMONIA. 2.DEMENTIA. 3.POOR INTAKE. 4.MALE NUTRITION. - Plan Plan: 1.ADMIT TO TELEMETRY. 2.D5 HALF NS AT 75 CC/H. 3.PUREED DIET WITH ONE TO ONE ASSIST. 4.2 L NC OXYGEN. 5.LEVAQUIN 500 MG IV ONCE A DAY. 6.BREATHING TREATMENT WITH XOPENEX 1.25MG EVERY 6H. 7.CONSULT . 8.CBC AND CMP STAT. 9.RESUME HOME MEDICATION. 10.SWALLOW EVALUATION. Nutritional Asmnt/Malnutr-PDOC - Dietary Evaluation Malnutrition Findings (Please click <Entered> for more info): Nutritional Asmnt/Malnutrition Start: 01/28/17 18: 10 Text: Status: Complete Freq: Document 01/28/17 18:10 GSUN (Rec: 01/28/17 18:20 GSUN [email or web address]) Nutritional Asmnt/Malnutrition Patient General Information Nutritional Screening High Risk Screening Diagnosis LLL PNA, dementia, poor intake , malnutrition Pertinent Medical Hx/Surgical Hx Dementia, depression, muscle atrophy, weakness Subjective Information 81 year old male, transfered from [facility] due to coughing, admitted to [facility] for LLL PNA. Pt was NPO during visit, swallow eval pending. Avg PO intake 83% of meals for past 12 meals at [facility] unit with total assist, meeting nutritional needs. Pt was resting during visit, observed NPO sign on headboard. Severe muscle/fat wasting to chest and clavicles noted. Informed by RN later today at 5pm that pt passed swallow eval for pureed honey thick liquid. Current Diet Order/ Nutrition Support Purred, honey thick Pertinent Medications Oscal W/Vitamin D, D5-0.45ns, Colace, Iron, Cephulac, MOM, Theragran Pertinent Labs Reviewed. Glucose 137H Nutritional Hx/Data Height 1.68 m Height (Calculated Centimeters) 167.6 Current Weight (lbs) 49.487 kg Weight (Calculated Kilograms) 49.5 Weight (Calculated Grams) 57520.9 [place] Body Weight 142 Weight Status Underweight GI Symptoms Skin Integrity/Comment: Ishan Angulo. 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 Estimated Nutritional Goals Calories/Kcals/Kg IBW 142lb/64.5kg Kcals Calculated 1935-2258kcal (30-35kcal/kg) Protein Calculated 77-97g (1.2-1.5g/kg) Fluid: ml 1935-2258ml (1ml/kcal) Nutritional Problem 1. Problem Problem (possible) Difficulty swallowing related to Etiology possible dysphagia aeb Signs/Symptoms: swallow eval pending during visit, pt was on honey thick liquids 2. Problem Problem Increased kcal and prot needs related to Etiology hypermetabolic state aeb Signs/Symptoms: PNA, BMI 17.6 with severe muscle/fat depletion Malnutrition Alert Body Fat Depletion (Severe) Mod to Severe Depletion Muscle Mass (Severe) Mod to Severe Depletion Is there a minimum of two criteria Yes selected? Query Text:Check all the applicable criteria. A minimum of two criteria are recommended for diagnosis of either severe or non-severe malnutrition. Intervention/Recommendation Comments 1. Continue with current diet order per ST. 2. Nursing staff to provide total assist with meals. Pt was meeting nutritional needs at [facility] unit. Expected Outcomes/Goals Expected Outcomes/Goals 1. PO intake to meet 100% of estimated nutritional needs.
--- NOTE | 2017-01-28 21:04 | Internal Medicine Prog Note ---
Internal Medicine Subjective - Subjective Service Date: 01/28/17 Patient is:: arousable Patient Complaints of:: cough Per staff patient has:: no adverse event, eating well Internal Medicine Objective - Results Result Diagrams: 01/27/17 15:52 01/27/17 15:52 Recent Labs: Laboratory Last Values WBC 10.7 Th/cmm (4.8-10.8) D 01/27/17 15:52 RBC 3.90 Mil/cmm (3.80-5.80) 01/27/17 15:52 Hgb 12.8 gm/dL (12.6-17.4) 01/27/17 15:52 Hct 37.7 % (39.0-49.0) L 01/27/17 15:52 MCV 96.8 fl (80-99) 01/27/17 15:52 MCH 32.9 pg (27.0-31.0) H 01/27/17 15:52 MCHC Differential 34.0 pg (28.0-36.0) 01/27/17 15:52 RDW 13.4 % (11.5-20.0) 01/27/17 15:52 Plt Count 216 Th/cmm (150-400) 01/27/17 15:52 MPV 7.3 fl 01/27/17 15:52 Band Neutrophils % 3 % (0-10) 01/27/17 15:52 Neutrophils (Manual) 82 % (40-80) H 01/27/17 15:52 Lymphocytes 11 % (20-50) L 01/27/17 15:52 Monocytes 4 % (2-10) 01/27/17 15:52 Platelet Estimate ADEQUATE (NORMAL) 01/27/17 15:52 Sodium 131 mEq/L (136-145) L 01/27/17 15:52 Potassium 4.2 mEq/L (3.5-5.1) 01/27/17 15:52 Chloride 101 mEq/L (98-107) 01/27/17 15:52 Carbon Dioxide 29.7 mEq/L (21.0-31.0) 01/27/17 15:52 Anion Gap 4.5 (7.0-16.0) L 01/27/17 15:52 BUN 32 mg/dL (7-25) H 01/27/17 15:52 Creatinine 0.8 mg/dL (0.7-1.3) 01/27/17 15:52 Est GFR ( Amer) TNP 01/27/17 15:52 Est GFR (Non-Af Amer) TNP 01/27/17 15:52 BUN/Creatinine Ratio 40.0 01/27/17 15:52 Glucose 137 mg/dL (70-105) H 01/27/17 15:52 Calcium 9.4 mg/dL (8.6-10.3) 01/27/17 15:52 - Physical Exam Vitals and I&O: Vital Signs Temp 96.4 F 01/28/17 20:00 Pulse 72 01/28/17 20:00 Resp 18 01/28/17 20:00 BP 123/63 01/28/17 20:00 Pulse Ox 100 01/28/17 20:00 Intake & Output 01/28/17 01/28/17 01/29/17 06:59 18:59 06:59 Intake Total 1050 100 Output Total 2 Balance 1048 100 Weight (lbs) 50.802 kg 49.487 kg Intake: Intake, IV Amount 1050 100 D5-0.45NS 1,000 ml @ 75 1000 mls/hr IV .[id number] [facility] Rx #:[id number] Piperacillin Sodium/ 50 100 Tazobact 4.5 gm In Sodium Chloride 0.9% 50 ml @ 50 mls/hr IV Q6HR [facility] Rx#: [id number] Output: Urine 2 Other: # Bowel Movements 1 Stool Characteristics Formed Formed Active Medications: Current Medications Acetaminophen (Tylenol) 325 mg PO Q4HR PRN PRN Reason: Pain (Mild) Stop: 03/28/17 15:40 Al Hydrox/Mg Hydrox/Simethicone (Maalox) 30 ml PO Q4HR PRN PRN Reason: GI DISTRESS Stop: 03/28/17 15:40 Albuterol Sulfate (Albuterol 2.5mg/3ml Neb Ud) 2.5 mg HHN Q8HR PRN PRN Reason: Congestion Stop: 03/28/17 15:40 Bacitracin (Baciquent) 1 pkt TP DAILY [facility] Stop: 03/29/17 08:59 Last Admin: 01/28/17 08:53 Dose: 1 pkt Calcium/Vitamin D (Oscal W/Vitamin D) 1 tab PO BID [facility] Stop: 03/28/17 16:59 Last Admin: 01/28/17 16:51 Dose: Not Given Docusate Sodium (Colace) 100 mg PO BID [facility] Stop: 03/28/17 16:59 Last Admin: 01/28/17 16:51 Dose: Not Given Escitalopram Oxalate (Lexapro) 2.5 mg PO DAILY ADOLFO PRN Reason: Protocol Stop: 03/29/17 08:59 Last Admin: 01/28/17 08:54 Dose: Not Given Ferrous Sulfate (Iron) 325 mg PO DAILY ADOLFO Stop: 03/29/17 08:59 Last Admin: 01/28/17 08:54 Dose: Not Given Gabapentin (Neurontin) 600 mg PO HS [facility] Stop: 03/28/17 20:59 Heparin Sodium (Porcine) (Heparin) 5,000 units SUBQ Q12HR [facility] Stop: 03/29/17 20:59 Dextrose/Sodium Chloride (D5-0.45ns) 1,000 mls @ 75 mls/hr IV .[id number] [facility] Stop: 03/28/17 15:33 Last Admin: 01/28/17 08:54 Dose: 75 mls/hr Piperacillin Sod/Tazobactam (Sod 4.5 gm/ Sodium Chloride) 50 mls @ 50 mls/hr IV Q6HR [facility] Stop: 03/28/17 17:59 Last Admin: 01/28/17 17:14 Dose: 100 mls/hr Lactulose (Cephulac) 20 gm PO DAILY [facility] Stop: 03/29/17 08:59 Last Admin: 01/28/17 08:55 Dose: Not Given Magnesium Hydroxide (Milk Of Magnesia) 30 ml PO DAILY PRN PRN Reason: Constipation Stop: 03/28/17 15:40 Miscellaneous (Zosyn Iv Per Pharmacy) 1 ea MC PRN PRN PRN Reason: PROTOCOL Stop: 03/28/17 15:50 Multivitamins/Vitamin C (Theragran) 1 tab PO DAILY [facility] Stop: 03/29/17 08:59 Last Admin: 01/28/17 08:55 Dose: Not Given Pilocarpine HCl (Isopto-Carpine 1% Oph Soln) 1 drop EACH EYE TID [facility] Stop: 03/28/17 20:59 Last Admin: 01/28/17 14:00 Dose: 1 drop Psyllium Hydrophilic Mucilloid (Metamucil) 1 pkt PO BID [facility] Stop: 03/28/17 16:59 Last Admin: 01/28/17 16:51 Dose: Not Given Sodium Chloride ([place] Nasal [place]) 1 spr NS DAILY [facility] Stop: 03/29/17 08:59 Last Admin: 01/28/17 08:49 Dose: 1 spr Zolpidem Tartrate (Ambien) 5 mg PO HS PRN PRN Reason: Insomnia Stop: 03/28/17 15:40 - Procedures Procedures: Procedures Procedure Code Date I[place] [address] 05/21/16 IMMUNIZATION ADMIN 72029 05/21/16 INTRODUCTION OF SERUM/TOX/VACCINE INTO MUSCLE, PERC APPROACH [id number] 05/21/16 Internal Medicine Assmt/Plan - Assessment Assessment: 1.LLL PNEUMONIA. 2.DEMENTIA. 3.POOR INTAKE. 4.MALE NUTRITION. - Plan Plan: CONTINUE ON CURRENT MEDICATION AND DIET. Nutritional Asmnt/Malnutr-PDOC - Dietary Evaluation Malnutrition Findings (Please click <Entered> for more info): Nutritional Asmnt/Malnutrition Start: 01/28/17 18: 10 Text: Status: Complete Freq: Document 01/28/17 18:10 GSUN (Rec: 01/28/17 18:20 GSUN [email or web address]) Nutritional Asmnt/Malnutrition Patient General Information Nutritional Screening High Risk Screening Diagnosis LLL PNA, dementia, poor intake , malnutrition Pertinent Medical Hx/Surgical Hx Dementia, depression, muscle atrophy, weakness Subjective Information 81 year old male, transfered from [facility] due to coughing, admitted to [facility] for LLL PNA. Pt was NPO during visit, swallow eval pending. Avg PO intake 83% of meals for past 12 meals at [facility] unit with total assist, meeting nutritional needs. Pt was resting during visit, observed NPO sign on headboard. Severe muscle/fat wasting to chest and clavicles noted. Informed by RN later today at 5pm that pt passed swallow eval for pureed honey thick liquid. Current Diet Order/ Nutrition Support Purred, honey thick Pertinent Medications Oscal W/Vitamin D, D5-0.45ns, Colace, Iron, Cephulac, MOM, Theragran Pertinent Labs Reviewed. 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 Estimated Nutritional Goals Calories/Kcals/Kg IBW 142lb/64.5kg Kcals Calculated 1935-2258kcal (30-35kcal/kg) Protein Calculated 77-97g (1.2-1.5g/kg) Fluid: ml 1935-2258ml (1ml/kcal) Nutritional Problem 1. Problem Problem (possible) Difficulty swallowing related to Etiology possible dysphagia aeb Signs/Symptoms: swallow eval pending during visit, pt was on honey thick liquids 2. Problem Problem Increased kcal and prot needs related to Etiology hypermetabolic state aeb Signs/Symptoms: PNA, BMI 17.6 with severe muscle/fat depletion Malnutrition Alert Body Fat Depletion (Severe) Mod to Severe Depletion Muscle Mass (Severe) Mod to Severe Depletion Is there a minimum of two criteria Yes selected? Query Text:Check all the applicable criteria. A minimum of two criteria are recommended for diagnosis of either severe or non-severe malnutrition. Intervention/Recommendation Comments 1. Continue with current diet order per ST. 2. Nursing staff to provide total assist with meals. Pt was meeting nutritional needs at [facility] unit. Expected Outcomes/Goals Expected Outcomes/Goals 1. PO intake to meet 100% of estimated nutritional needs.
[2017-01-29] MEDS: Ferrous Sulfate 325 MG TAB PO SCH (08:59)
[2017-01-29] MEDS: Escitalopram Oxalate 5 mg Tab PO SCH (08:59)
[2017-01-29] MEDS: Saline 0.65% Nasal Spray NS SCH (08:59)
[2017-01-29] MEDS: Lactulose 10 Gm/15 mL 30mL UDC PO SCH (08:59)
[2017-01-29] MEDS: Calcium Carb/Vit D 500 mg/200 U Tab PO SCH ×2 (08:59→16:49)
[2017-01-29] MEDS: Multivitamin Tab PO SCH (08:59)
[2017-01-29] MEDS: Bacitracin pkt 1 gm Pkt TP SCH (10:05)
--- NOTE | 2017-01-29 10:57 | Diagnostic Imaging Report ---
Portable chest x-ray HISTORY: Shortness of breath Compared to prior exam of January 27, 2017, there appears to be a slight decrease in infiltrate within left lower lobe. The heart size remains generous. IMPRESSION: 1. Decreased infiltrate left lower lobe
--- NOTE | 2017-01-29 19:51 | Internal Medicine Prog Note ---
Internal Medicine Subjective - Subjective Service Date: 01/29/17 Patient seen and examined:: with staff Patient is:: eyes closed, arousable, in bed, confused Patient Complaints of:: cough Per staff patient has:: no adverse event, eating well Internal Medicine Objective - Results Result Diagrams: 01/27/17 15:52 01/27/17 15:52 Recent Labs: Laboratory Last Values WBC 10.7 Th/cmm (4.8-10.8) D 01/27/17 15:52 RBC 3.90 Mil/cmm (3.80-5.80) 01/27/17 15:52 Hgb 12.8 gm/dL (12.6-17.4) 01/27/17 15:52 Hct 37.7 % (39.0-49.0) L 01/27/17 15:52 MCV 96.8 fl (80-99) 01/27/17 15:52 MCH 32.9 pg (27.0-31.0) H 01/27/17 15:52 MCHC Differential 34.0 pg (28.0-36.0) 01/27/17 15:52 RDW 13.4 % (11.5-20.0) 01/27/17 15:52 Plt Count 216 Th/cmm (150-400) 01/27/17 15:52 MPV 7.3 fl 01/27/17 15:52 Band Neutrophils % 3 % (0-10) 01/27/17 15:52 Neutrophils (Manual) 82 % (40-80) H 01/27/17 15:52 Lymphocytes 11 % (20-50) L 01/27/17 15:52 Monocytes 4 % (2-10) 01/27/17 15:52 Platelet Estimate ADEQUATE (NORMAL) 01/27/17 15:52 Sodium 131 mEq/L (136-145) L 01/27/17 15:52 Potassium 4.2 mEq/L (3.5-5.1) 01/27/17 15:52 Chloride 101 mEq/L (98-107) 01/27/17 15:52 Carbon Dioxide 29.7 mEq/L (21.0-31.0) 01/27/17 15:52 Anion Gap 4.5 (7.0-16.0) L 01/27/17 15:52 BUN 32 mg/dL (7-25) H 01/27/17 15:52 Creatinine 0.8 mg/dL (0.7-1.3) 01/27/17 15:52 Est GFR ( Amer) TNP 01/27/17 15:52 Est GFR (Non-Af Amer) TNP 01/27/17 15:52 BUN/Creatinine Ratio 40.0 01/27/17 15:52 Glucose 137 mg/dL (70-105) H 01/27/17 15:52 Calcium 9.4 mg/dL (8.6-10.3) 01/27/17 15:52 - Physical Exam Vitals and I&O: Vital Signs Temp 97.2 F 01/29/17 16:26 Pulse 60 01/29/17 16:26 Resp 18 01/29/17 16:26 BP 149/86 01/29/17 16:26 Pulse Ox 99 01/29/17 16:26 Intake & Output 01/29/17 01/29/17 01/30/17 06:59 18:59 06:59 Intake Total 1170 100 Balance 1170 100 Weight (lbs) 50.349 kg Intake: Intake, IV Amount 1050 100 D5-0.45NS 1,000 ml @ 75 1000 mls/hr IV .[id number] [facility] Rx #:[id number] Piperacillin Sodium/ 50 100 Tazobact 4.5 gm In Sodium Chloride 0.9% 50 ml @ 50 mls/hr IV Q6HR [facility] Rx#: [id number] Oral 120 Other: # Voids 3 # Bowel Movements 0 Stool Characteristics Formed Formed Active Medications: Current Medications Acetaminophen (Tylenol) 325 mg PO Q4HR PRN PRN Reason: Pain (Mild) Stop: 03/28/17 15:40 Al Hydrox/Mg Hydrox/Simethicone (Maalox) 30 ml PO Q4HR PRN PRN Reason: GI DISTRESS Stop: 03/28/17 15:40 Albuterol Sulfate (Albuterol 2.5mg/3ml Neb Ud) 2.5 mg HHN Q8HR PRN PRN Reason: Congestion Stop: 03/28/17 15:40 Bacitracin (Baciquent) 1 pkt TP DAILY [facility] Stop: 03/29/17 08:59 Last Admin: 01/29/17 10:05 Dose: 1 pkt Calcium/Vitamin D (Oscal W/Vitamin D) 1 tab PO BID [facility] Stop: 03/28/17 16:59 Last Admin: 01/29/17 16:49 Dose: 1 tab Docusate Sodium (Colace) 100 mg PO BID [facility] Stop: 03/28/17 16:59 Last Admin: 01/29/17 16:49 Dose: 100 mg Escitalopram Oxalate (Lexapro) 2.5 mg PO DAILY ADOLFO PRN Reason: Protocol Stop: 03/29/17 08:59 Last Admin: 01/29/17 08:59 Dose: Not Given Ferrous Sulfate (Iron) 325 mg PO DAILY [facility] Stop: 03/29/17 08:59 Last Admin: 01/29/17 08:59 Dose: Not Given Gabapentin (Neurontin) 600 mg PO HS [facility] Stop: 03/28/17 20:59 Last Admin: 01/28/17 22:03 Dose: 600 mg Heparin Sodium (Porcine) (Heparin) 5,000 units SUBQ Q12HR [facility] Stop: 03/29/17 20:59 Last Admin: 01/29/17 10:05 Dose: 5,000 units Dextrose/Sodium Chloride (D5-0.45ns) 1,000 mls @ 75 mls/hr IV .[id number] [facility] Stop: 03/28/17 15:33 Last Admin: 01/28/17 23:30 Dose: 75 mls/hr Piperacillin Sod/Tazobactam (Sod 4.5 gm/ Sodium Chloride) 50 mls @ 50 mls/hr IV Q6HR [facility] Stop: 03/28/17 17:59 Last Admin: 01/29/17 17:34 Dose: 100 mls/hr Lactulose (Cephulac) 20 gm PO DAILY [facility] Stop: 03/29/17 08:59 Last Admin: 01/29/17 08:59 Dose: Not Given Magnesium Hydroxide (Milk Of Magnesia) 30 ml PO DAILY PRN PRN Reason: Constipation Stop: 03/28/17 15:40 Miscellaneous (Zosyn Iv Per Pharmacy) 1 ea MC PRN PRN PRN Reason: PROTOCOL Stop: 03/28/17 15:50 Multivitamins/Vitamin C (Theragran) 1 tab PO DAILY [facility] Stop: 03/29/17 08:59 Last Admin: 01/29/17 08:59 Dose: Not Given Pilocarpine HCl (Isopto-Carpine 1% Ophth Soln) 1 drop EACH EYE TID [facility] Stop: 03/28/17 20:59 Last Admin: 01/29/17 14:15 Dose: 1 drop Psyllium Hydrophilic Mucilloid (Metamucil) 1 pkt PO BID [facility] Stop: 03/28/17 16:59 Last Admin: 01/29/17 16:49 Dose: 1 pkt Sodium Chloride ([place] Nasal [place]) 1 spr NS DAILY [facility] Stop: 03/29/17 08:59 Last Admin: 01/29/17 08:59 Dose: Not Given Zolpidem Tartrate (Ambien) 5 mg PO HS PRN PRN Reason: Insomnia Stop: 03/28/17 15:40 - Procedures Procedures: Procedures Procedure Code Date IIV [place] [address] 05/21/16 IMMUNIZATION ADMIN 40250 05/21/16 INTRODUCTION OF SERUM/TOX/VACCINE INTO MUSCLE, PERC APPROACH [id number] 05/21/16 Internal Medicine Assmt/Plan - Assessment Assessment: 1.LLL PNEUMONIA. 2.DEMENTIA. 3.POOR INTAKE. 4.MALE NUTRITION. - Plan Plan: CONTINUE ON CURRENT MEDICATION AND DIET. Nutritional Asmnt/Malnutr-PDOC - Dietary Evaluation Malnutrition Findings (Please click <Entered> for more info): Nutritional Asmnt/Malnutrition Start: 01/28/17 18: 10 Text: Status: Complete Freq: Document 01/28/17 18:10 GSUN (Rec: 01/28/17 18:20 GSUN [email or web address]) Nutritional Asmnt/Malnutrition Patient General Information Nutritional Screening High Risk Screening Diagnosis LLL PNA, dementia, poor intake , malnutrition Pertinent Medical Hx/Surgical Hx Dementia, depression, muscle atrophy, weakness Subjective Information 81 year old male, transfered from [facility] due to coughing, admitted to [facility] for LLL PNA. Pt was NPO during visit, swallow eval pending. Avg PO intake 83% of meals for past 12 meals at [facility] unit with total assist, meeting nutritional needs. Pt was resting during visit, observed NPO sign on headboard. Severe muscle/fat wasting to chest and clavicles noted. Informed by RN later today at 5pm that pt passed swallow eval for pureed honey thick liquid. Current Diet Order/ Nutrition Support Purred, honey thick Pertinent Medications Oscal W/Vitamin D, D5-0.45ns, Colace, Iron, Cephulac, MOM, Theragran Pertinent Labs Reviewed. 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 Estimated Nutritional Goals Calories/Kcals/Kg IBW 142lb/64.5kg Kcals Calculated 1935-2258kcal (30-35kcal/kg) Protein Calculated 77-97g (1.2-1.5g/kg) Fluid: ml 1935-2258ml (1ml/kcal) Nutritional Problem 1. Problem Problem (possible) Difficulty swallowing related to Etiology possible dysphagia aeb Signs/Symptoms: swallow eval pending during visit, pt was on honey thick liquids 2. Problem Problem Increased kcal and prot needs related to Etiology hypermetabolic state aeb Signs/Symptoms: PNA, BMI 17.6 with severe muscle/fat depletion Malnutrition Alert Body Fat Depletion (Severe) Mod to Severe Depletion Muscle Mass (Severe) Mod to Severe Depletion Is there a minimum of two criteria Yes selected? Query Text:Check all the applicable criteria. A minimum of two criteria are recommended for diagnosis of either severe or non-severe malnutrition. Intervention/Recommendation Comments 1. Continue with current diet order per ST. 2. Nursing staff to provide total assist with meals. Pt was meeting nutritional needs at [facility] unit. Expected Outcomes/Goals Expected Outcomes/Goals 1. PO intake to meet 100% of estimated nutritional needs.
[2017-01-30] MEDS: Saline 0.65% Nasal Spray NS SCH (09:19)
[2017-01-30] MEDS: D5-0.45NS 1,000 ML IV SCH (09:20)
[2017-01-30] MEDS: Calcium Carb/Vit D 500 mg/200 U Tab PO SCH ×2 (09:23→19:15)
[2017-01-30] MEDS: Bacitracin pkt 1 gm Pkt TP SCH (09:23)
[2017-01-30] MEDS: Ferrous Sulfate 325 MG TAB PO SCH (09:24)
[2017-01-30] MEDS: Lactulose 10 Gm/15 mL 30mL UDC PO SCH (09:25)
[2017-01-30] MEDS: Multivitamin Tab PO SCH (09:25)
--- NOTE | 2017-01-30 19:44 | Progress Notes ---
DATE: 01/30/2017 Case was discussed with staff of the patient, reviewed records. The patient was taken off Lexapro by Dr. Trejo. Apparently they found ____ to be on any medication. However, the staff tell me he is refusing to eat, refusing to take medications. He is on IV antibiotics. He is still confused, restless. He is unable to participate in a meaningful conversation. He is recovering from pneumonia and we will continue supportive measures Thank you very much for allowing me to participate in the care of this most interesting gentleman. JOB# [id number]
== END 2017-01-30 20:15 | disposition home or self-care (01) | DRG 178 ==
LOC: MSI 14:49 → TELE 15:30
PROVIDERS: ADMIT Family Medicine; ATTEND Family Medicine
DX: J69.0 Pneumonitis due to inhalation of food and vomit (principal); E44.1 Mild protein-calorie malnutrition; F03.90 Unspecified dementia, unspecified severity, without behavioral disturbance, psychotic disturbance, mood disturbance, and anxiety; Z68.1 Body mass index [BMI] 19.9 or less, adult; Z88.1 Allergy status to other antibiotic agents; Z86.73 Personal history of transient ischemic attack (TIA), and cerebral infarction without residual deficits; Z85.828 Personal history of other malignant neoplasm of skin
CPT/HCPCS: 36415-UA; 71010-TC; 80048-TC; 85007-TC; 85027-TC; 94760; J1644; J2543; X3401; Z7610